=== PATIENT | male | born 1940 | race Caucasian/White ===

== ENCOUNTER 2017-07-06 15:34 | Inpatient (IN) | payer MEDICARE, MEDICAID ==
[~2017-07-06] VITALS: Ht 170.2 cm; Wt 39.0 kg
--- NOTE | 2017-07-06 16:06 | NUR ---
PT IS IN ROOM #2B. DR MATA EVALUATED THE PT.
--- NOTE | 2017-07-06 16:12 | NUR ---
PT IS IN ROOM 2B UNDER DIRECT SUPERVISION OF COURTNEY LANDON. NO S/S OF ACUTE DISTRESS AT THIS TIME.
[2017-07-06] MEDS ORDERED: LACT1CAP61 PO (16:29)
[2017-07-06] MEDS ORDERED: MULT-1185 PO (16:29)
[2017-07-06] MEDS ORDERED: MEMA5TAB PO (16:29)
[2017-07-06] MEDS ORDERED: ASCO500T9 PO (16:29)
[2017-07-06] MEDS ORDERED: CHOL100062 PO (16:29)
[2017-07-06] MEDS ORDERED: DOCU250C14 PO (16:29)
[2017-07-06] MEDS ORDERED: CARB1TAB21 PO (16:29)
[2017-07-06] MEDS ORDERED: TEMA7.5C2 PO (16:30)
[2017-07-06] MEDS ORDERED: RISP1TAB7 PO (16:30)
[2017-07-06] MEDS ORDERED: BISA10SU12 RC (16:30)
[2017-07-06] MEDS ORDERED: ACET325T53 PO (16:30)
[2017-07-06] MEDS ORDERED: MAG355OR18 PO (16:30)
[2017-07-06] MEDS ORDERED: SERT50TA PO (16:30)
[2017-07-06] MEDS ORDERED: PANT40TA4 PO (16:30)
[2017-07-06] MEDS ORDERED: LORA0.5T PO (16:30)
[2017-07-06] MEDS ORDERED: SENN-167 PO (16:30)
[2017-07-06] MEDS ORDERED: NA P133E RC (16:30)
[2017-07-06] MEDS ORDERED: MAGN400O6 PO (16:30)
[2017-07-06 16:32] LABS: BASOPHILS # (AUTO) 0.1 K/uL (0.0-8.0); BASOPHILS % (AUTO) 0.6 % (0.0-2.0); EOSINOPHILS # (AUTO) 0.5 K/uL (0.0-0.7); HEMATOCRIT 39.9 % (40-50); HEMOGLOBIN 13.3 G/DL (14.0-18.0); LYMPHOCYTES # (AUTO) 1.3 K/UL (0.8-4.8); LYMPHOCYTES % (AUTO) 12.1 % (20.5-51.5); MEAN CORPUSCULAR HEMOGLOBIN 29.8 UUG (27.0-31.0); MEAN CORPUSCULAR HGB CONC 33 g/dL (32.0-37.0); MEAN CORPUSCULAR VOLUME 89.6 FL (82.0-92.0); MONOCYTES # (AUTO) 0.5 K/UL (0.1-1.30); MONOCYTES % (AUTO) 4.9 % (0.0-11.0); NEUTROPHILS # (AUTO) 8.1 K/UL (1.8-8.9); NEUTROPHILS % (AUTO) 77.4 % (38.5-71.5); PLATELET COUNT (AUTO) 218 K/UL (150-450); RED BLOOD CELL COUNT(AUTO) 4.46 MIL/UL (4.7-6.1); WHITE BLOOD COUNT (AUTO) 10.5 K/UL (4.0-11.2)
[2017-07-06 16:41] LABS: CARBON DIOXIDE 28 mmol/L (21-32); CHLORIDE 102 mmol/L (98-107); CREATININE 0.9 mg/dL (0.6-1.3); GLUCOSE 110 mg/dL (74-106); POTASSIUM 4.1 mmol/L (3.5-5.1); UREA NITROGEN, BLOOD 25 mg/dL (7-18)
[2017-07-06 16:43] LABS: ETHANOL < 3 MG/DL (0-0)
[2017-07-06 16:56] LABS: ACETAMINOPHEN < 2.0 ug/mL (10-30); ALANINE AMINOTRANSFERASE 12 U/L (16-63); ALKALINE PHOSPHATASE 89 U/L (50-136); ASPARTATE AMINOTRANSFERASE 20 U/L (15-37); BILIRUBIN,DIRECT 0.1 mg/dL (0.0-0.2); BILIRUBIN,TOTAL 0.3 mg/dL (0.2-1.0); THYROID STIMULATING HORMONE 1.043 mIU/mL (0.358-3.740); TOTAL PROTEIN, SERUM 7.4 g/dL (6.4-8.2)
--- NOTE | 2017-07-06 18:47 | NUR ---
JW SALAS EVALUATED THE PT. PT IS RESTING IN BED COMFORTABLY. NO S/S OF ACUTE DISTRESS AT THIS TIME.
--- NOTE | 2017-07-06 19:01 | NUR ---
REPORT WAS GIVEN TO SOLAR SALES MANAGER RN.
[2017-07-06] MEDS ORDERED: MAG HYDROX/AL HYDROX/SIMETH 30 ML LIQUID UDC PO PRN ×2 (20:15→22:30)
[2017-07-06] MEDS ORDERED: TEMAZEPAM 7.5 MG CAPSULE PO PRN (20:15)
[2017-07-06] MEDS ORDERED: MAGNESIUM HYDROXIDE 30 ML LIQUID UDC PO PRN ×2 (20:15→22:30)
[2017-07-06] MEDS ORDERED: LORAZEPAM 1 MG TABLET PO PRN (20:15)
--- NOTE | 2017-07-06 20:16 | NUR ---
Pt. admitted to MHU, under care of Dr. lino/panel, Belongs List completed, pt is alert, oriented x 2, no resp distress noted or reported upon assessment..
--- NOTE | 2017-07-06 21:47 | NUR ---
At approx 2015 admitted 76 year old male from [facility] ([facility]. Per staff at [facility], patient made suicidal statements, "wanting to ". but without specific plan. 5150 hold started on 07/06/17 at 1820 and will end on 07/09/17 at 1820. Patient is A/O x 2 and able to make his needs know. Pt needs assistance with ambulation and ADL. Pt was calm and cooperative at time of admission. He denies SI, he stated, "they got it wrong, I don't want to ". Attending MD was notify and all medication were reconciled, attending Psychiatrist was notified of admission. Attempted to notify Public Guarding Gabe Molina, but unable to leave a message. will try in the AM. Body assessment: redness noted in buttocks and scrotum. but no wounds or open skin was noted. will monitor. Fungus toenail bilateral was also noted. We will continue to monitor.
[2017-07-06 22:07] VITALS: BP 120/67
[2017-07-06] MEDS ORDERED: ACETAMINOPHEN 325 MG TABLET PO PRN (22:30)
[2017-07-06] MEDS ORDERED: FLEET ENEMA 133 ML BOTTLE RC PRN (22:30)
[2017-07-06] MEDS ORDERED: BISACODYL 10 MG SUPP.RECT RC PRN (22:30)
[2017-07-07 07:30] VITALS: BP 129/63
[2017-07-07] MEDS: ACIDOPHILUS/BULGARICUS CHEW TAB PO SCH (09:35)
[2017-07-07] MEDS: CARBIDOPA/LEVODOPA 25-100MG TABLET PO SCH ×3 (09:35→16:13)
[2017-07-07] MEDS: CHOLECALCIFEROL 1,000 UNIT TABLET PO SCH ×3 (09:35→16:13)
[2017-07-07] MEDS: PANTOPRAZOLE SODIUM 40 MG TABLET.DR PO SCH (09:35)
[2017-07-07] MEDS: ASCORBIC ACID 500 MG TABLET PO SCH (09:35)
[2017-07-07] MEDS: Z GUARD REMEDY PASTE 57 GM TUBE TOP SCH ×2 (09:42→20:06)
[2017-07-07] MEDS: ACETAMINOPHEN 325 MG TABLET PO PRN (09:48)
[2017-07-07] MEDS: DOCUSATE SODIUM 250 MG CAPSULE PO SCH (09:48)
--- NOTE | 2017-07-07 10:48 | NUR ---
Received patient in bed awake, flat/blunted affect, guarded, calm and cooperative, ate 50% breakfast, showered this am. Denies suicidal ideations at this time, denies hearing voices. Medication compliant and cooperative, c/o leg pain at 6/10, tylenol 650mg PO was given at 0948, reassessed in an hour, pain /10. Will continue to monitor for safety and needs.
[2017-07-07] MEDS: MULTIVIT, IRON, MIN NO. 8, FA TABLET PO SCH (11:05)
--- NOTE | 2017-07-07 11:42 | NUR ---
Initial discharge instructions: Pt resides at [facility] [[address],[address];[phone]].Spoke with LPS Conservator-Gabe Hughes [phone] who reported he would like the pt to return back to the facility.SW will speak with pt,conservator,and MD regarding discharge plans.SW will form a safe and proper discharge.
[2017-07-07 17:04] VITALS: BP 107/52
--- NOTE | 2017-07-07 17:59 | NUR ---
Patient stayed in his room most of the shift, depressed mood, denies suicidal ideation, guarded, no behavior problem noted. Medication compliant and cooperative. Will continue to monitor for safety and behavioral changes.
[2017-07-07] MEDS: SERTRALINE HCL 50 MG TABLET PO SCH (18:46)
[2017-07-07 20:00] VITALS: BP 113/53
[2017-07-07] MEDS: SENNOSIDES 1 TABLET PO SCH (20:05)
[2017-07-07] MEDS: risperiDONE 1 MG TABLET PO SCH (20:05)
--- NOTE | 2017-07-07 22:04 | NUR ---
pt received in his room laying in bed awake, a/o x2, tremors noted, pressured speech, able to make needs known, diaper changed, pt repositioned, took meds as ordered, will continue to monitor closely
[2017-07-08] MEDS: ACETAMINOPHEN 325 MG TABLET PO PRN ×3 (01:22→13:50)
[2017-07-08] MEDS: PANTOPRAZOLE SODIUM 40 MG TABLET.DR PO SCH (06:12)
[2017-07-08 08:00] VITALS: BP 106/59
[2017-07-08] MEDS: SERTRALINE HCL 50 MG TABLET PO SCH (08:57)
[2017-07-08] MEDS: DOCUSATE SODIUM 250 MG CAPSULE PO SCH (08:57)
[2017-07-08] MEDS: CHOLECALCIFEROL 1,000 UNIT TABLET PO SCH ×3 (08:57→16:29)
[2017-07-08] MEDS: ACIDOPHILUS/BULGARICUS CHEW TAB PO SCH (08:57)
[2017-07-08] MEDS: CARBIDOPA/LEVODOPA 25-100MG TABLET PO SCH ×3 (08:57→16:29)
[2017-07-08] MEDS: ASCORBIC ACID 500 MG TABLET PO SCH (08:57)
[2017-07-08] MEDS: Z GUARD REMEDY PASTE 57 GM TUBE TOP SCH ×2 (08:58→20:16)
[2017-07-08] MEDS: MULTIVIT, IRON, MIN NO. 8, FA TABLET PO SCH (11:30)
[2017-07-08 16:00] VITALS: BP 93/56
[2017-07-08] MEDS: SENNOSIDES 1 TABLET PO SCH (20:16)
[2017-07-08] MEDS: risperiDONE 1 MG TABLET PO SCH (20:16)
[2017-07-08 20:19] LABS: *OCCULT BLOOD STOOL NEGATIVE (NEGATIVE)
[2017-07-08 20:24] VITALS: BP 103/54
[2017-07-08] MEDS: HYDROCODONE/APAP 10-325 MG TABLET PO PRN (22:05)
--- NOTE | 2017-07-09 02:04 | NUR ---
AT 0140, Pt's BP WAS TAKEN AND FOUND TO BE LOW AT 93/43. Pt C/O DIZZINESS, AND HE WAS GIVEN APPROXIMATELY 300ml OF PO FLUIDS, THEN PLACED IN TRENDELENBURG POSITION. DR REESE NOTIFIED OF LOW BP, NO NEW ORDERS GIVEN. BP IS 87/43 UPON RE-CHECK. WILL CONTINUE TO MONITOR CLOSELY.
[2017-07-09] MEDS: ACETAMINOPHEN 325 MG TABLET PO PRN ×2 (03:24→20:31)
--- NOTE | 2017-07-09 03:47 | NUR ---
BP RE-CHECKED AND NOW 110/64. WILL CONTINUE TO MONITOR.
--- NOTE | 2017-07-09 03:48 | NUR ---
TYLENOL 650mg PULLED FROM PYXIS AT APPROXIMATELY 2014, WHEN THE ATTEMPT WAS MADE TO ADMINISTER IT, Pt THREW THE TYLENOL AND STATED, "THEY DON'T WORK!" TYLENOL WAS WASTED.
[2017-07-09] MEDS: PANTOPRAZOLE SODIUM 40 MG TABLET.DR PO SCH (06:27)
[2017-07-09 06:53] LABS: BASOPHILS # (AUTO) 0.1 K/uL (0.0-8.0); BASOPHILS % (AUTO) 0.7 % (0.0-2.0); EOSINOPHILS # (AUTO) 0.6 K/uL (0.0-0.7); EOSINOPHILS % (AUTO) 7.2 % (0.0-7.0); HEMATOCRIT 38.1 % (40-50); HEMOGLOBIN 12.7 G/DL (14.0-18.0); LYMPHOCYTES # (AUTO) 1.4 K/UL (0.8-4.8); LYMPHOCYTES % (AUTO) 17.5 % (20.5-51.5); MEAN CORPUSCULAR HEMOGLOBIN 29.9 UUG (27.0-31.0); MEAN CORPUSCULAR HGB CONC 33 g/dL (32.0-37.0); MEAN CORPUSCULAR VOLUME 89.4 FL (82.0-92.0); MONOCYTES # (AUTO) 0.5 K/UL (0.1-1.30); MONOCYTES % (AUTO) 6.6 % (0.0-11.0); NEUTROPHILS # (AUTO) 5.5 K/UL (1.8-8.9); PLATELET COUNT (AUTO) 162 K/UL (150-450); RED BLOOD CELL COUNT(AUTO) 4.26 MIL/UL (4.7-6.1); WHITE BLOOD COUNT (AUTO) 8.1 K/UL (4.0-11.2)
[2017-07-09 07:24] LABS: CARBON DIOXIDE 28 mmol/L (21-32); CHLORIDE 103 mmol/L (98-107); GLUCOSE 83 mg/dL (74-106); UREA NITROGEN, BLOOD 20 mg/dL (7-18)
[2017-07-09 07:30] VITALS: BP 92/53
[2017-07-09] MEDS: SERTRALINE HCL 50 MG TABLET PO SCH (08:50)
[2017-07-09] MEDS: ACIDOPHILUS/BULGARICUS CHEW TAB PO SCH (08:50)
[2017-07-09] MEDS: ASCORBIC ACID 500 MG TABLET PO SCH (08:51)
[2017-07-09] MEDS: MULTIVIT, IRON, MIN NO. 8, FA TABLET PO SCH (08:51)
[2017-07-09] MEDS: CHOLECALCIFEROL 1,000 UNIT TABLET PO SCH ×3 (08:51→17:26)
[2017-07-09] MEDS: CARBIDOPA/LEVODOPA 25-100MG TABLET PO SCH ×3 (08:51→17:26)
[2017-07-09] MEDS: Z GUARD REMEDY PASTE 57 GM TUBE TOP SCH ×2 (08:52→20:36)
[2017-07-09] MEDS: DOCUSATE SODIUM 250 MG CAPSULE PO SCH (09:03)
[2017-07-09] MEDS ORDERED: IV NS 1000 ML 1,000 ML IV ONE (16:30)
[2017-07-09] MEDS: SENNOSIDES 1 TABLET PO SCH (20:31)
[2017-07-09] MEDS: risperiDONE 1 MG TABLET PO SCH (20:31)
[2017-07-09 20:41] VITALS: BP 124/68
[2017-07-09] MEDS: HYDROCODONE/APAP 10-325 MG TABLET PO PRN (23:29)
[2017-07-10] MEDS: PANTOPRAZOLE SODIUM 40 MG TABLET.DR PO SCH (06:13)
[2017-07-10 07:30] VITALS: BP 108/56
[2017-07-10] MEDS: SERTRALINE HCL 50 MG TABLET PO SCH (08:52)
[2017-07-10] MEDS: ASCORBIC ACID 500 MG TABLET PO SCH (08:53)
[2017-07-10] MEDS: Z GUARD REMEDY PASTE 57 GM TUBE TOP SCH ×2 (08:53→20:11)
[2017-07-10] MEDS: CARBIDOPA/LEVODOPA 25-100MG TABLET PO SCH ×3 (08:53→17:39)
[2017-07-10] MEDS: DOCUSATE SODIUM 250 MG CAPSULE PO SCH (08:53)
[2017-07-10] MEDS: CHOLECALCIFEROL 1,000 UNIT TABLET PO SCH ×3 (08:53→17:39)
[2017-07-10] MEDS: ACIDOPHILUS/BULGARICUS CHEW TAB PO SCH (08:53)
[2017-07-10] MEDS: HYDROCODONE/APAP 10-325 MG TABLET PO PRN (09:09)
[2017-07-10] MEDS: MULTIVIT, IRON, MIN NO. 8, FA TABLET PO SCH (13:02)
[2017-07-10 15:00] VITALS: BP 78/41
[2017-07-10] MEDS ORDERED: IV NS 1000 ML 1,000 ML IV ONE (16:00)
--- NOTE | 2017-07-10 18:31 | NUR ---
1540 Patient B/P low 78/41 , asymptomatic. DNP. Lio Cleary in MHU aware of patient B/P with order to give iv NS bolus 1liter. 1601 IV NS iL bolus started right forearm infusing well. 1700 IV therapy completed without adverse reaction noted. 1845 Rechecked v/s T-97.9 HR- 60 Resp- 18 B/P 105/59 O2 Sat- 92 % R/A, patient denies dizziness related to low B/P. Will continue to monitor v/s. Report given to maintenance supervisor 2nd shift nurse .
[2017-07-10] MEDS: ACETAMINOPHEN 325 MG TABLET PO PRN (19:48)
[2017-07-10] MEDS: risperiDONE 1 MG TABLET PO SCH (20:11)
[2017-07-10] MEDS: SENNOSIDES 1 TABLET PO SCH (20:12)
[2017-07-10 20:23] VITALS: BP 107/46
[2017-07-11] MEDS: ACETAMINOPHEN 325 MG TABLET PO PRN ×2 (01:51→14:55)
[2017-07-11] MEDS: PANTOPRAZOLE SODIUM 40 MG TABLET.DR PO SCH (06:24)
[2017-07-11 07:30] VITALS: BP 118/61
[2017-07-11] MEDS: ACIDOPHILUS/BULGARICUS CHEW TAB PO SCH (09:04)
[2017-07-11] MEDS: SERTRALINE HCL 50 MG TABLET PO SCH (09:04)
[2017-07-11] MEDS: ASCORBIC ACID 500 MG TABLET PO SCH (09:04)
[2017-07-11] MEDS: CHOLECALCIFEROL 1,000 UNIT TABLET PO SCH ×3 (09:04→16:39)
[2017-07-11] MEDS: DOCUSATE SODIUM 250 MG CAPSULE PO SCH (09:04)
[2017-07-11] MEDS: CARBIDOPA/LEVODOPA 25-100MG TABLET PO SCH ×3 (09:04→16:39)
[2017-07-11] MEDS: Z GUARD REMEDY PASTE 57 GM TUBE TOP SCH ×2 (09:22→20:18)
[2017-07-11] MEDS: MULTIVIT, IRON, MIN NO. 8, FA TABLET PO SCH (12:26)
[2017-07-11 15:57] VITALS: BP 106/50
[2017-07-11] MEDS: risperiDONE 1 MG TABLET PO SCH (20:16)
[2017-07-11] MEDS: SENNOSIDES 1 TABLET PO SCH (20:17)
[2017-07-11 20:22] VITALS: BP 105/48
[2017-07-12] MEDS: ACETAMINOPHEN 325 MG TABLET PO PRN ×3 (05:12→19:37)
[2017-07-12] MEDS: PANTOPRAZOLE SODIUM 40 MG TABLET.DR PO SCH (06:17)
[2017-07-12 07:30] VITALS: BP 101/58
[2017-07-12] MEDS: CARBIDOPA/LEVODOPA 25-100MG TABLET PO SCH ×4 (08:02→20:26)
[2017-07-12] MEDS: ASCORBIC ACID 500 MG TABLET PO SCH (08:02)
[2017-07-12] MEDS: ACIDOPHILUS/BULGARICUS CHEW TAB PO SCH (08:02)
[2017-07-12] MEDS: CHOLECALCIFEROL 1,000 UNIT TABLET PO SCH ×3 (08:02→17:01)
[2017-07-12] MEDS: SERTRALINE HCL 50 MG TABLET PO SCH (08:03)
[2017-07-12] MEDS: DOCUSATE SODIUM 250 MG CAPSULE PO SCH (08:07)
[2017-07-12] MEDS: Z GUARD REMEDY PASTE 57 GM TUBE TOP SCH ×2 (09:21→20:25)
[2017-07-12] MEDS: MULTIVIT, IRON, MIN NO. 8, FA TABLET PO SCH (11:10)
[2017-07-12 15:28] VITALS: BP 94/51
[2017-07-12 20:15] VITALS: BP 139/65
[2017-07-12] MEDS: risperiDONE 1 MG TABLET PO SCH (20:26)
[2017-07-12] MEDS: SENNOSIDES 1 TABLET PO SCH (20:26)
[2017-07-12] MEDS ORDERED: IBUPROFEN 800 MG TABLET PO ONE (21:15)
[2017-07-12] MEDS ORDERED: IBUPROFEN 400 MG TABLET ONE (21:30)
--- NOTE | 2017-07-12 21:46 | NUR ---
TEMP ELEVATED AT BEGINNING OF SHIFT, 101.9. TYLENOL 650MG ADMINISTERED. TEMP 102.7 UPON RE-CHECK AT 2099. DNP LOS JASMINE NOTIFIED OF Pt's CONDITION AT 2104. 800MG MOTRIN x1 NOW ORDERED AND ADMINISTERED. STAT CXR ORDERED AND COMPLETED, AWAITING RESULTS. STRAIGHT CATH ORDERED, ATTEMPT MADE, RN UNABLE TO OBTAIN URINE AT THIS TIME. Pt GIVEN PO FLUIDS, WILL ATTEMPT AGAIN. NON-PHARMACOLOGICAL COOLING MEASURES PROVIDED AT THIS TIME.
--- NOTE | 2017-07-12 22:48 | NUR ---
HS RISPERDAL HELD DUE TO UNPREDICTABILITY OF BP, AND NO EVIDENT PSYCHOTIC BEHAVIORS AT THIS TIME. WILL CONTINUE TO MONITOR.
--- NOTE | 2017-07-12 23:51 | NUR ---
STRAIGHT CATH UNSUCCESSFUL AT THIS TIME. SUPRAPUBIC DISTENTION NOTED, MD AWARE. SCANNED BLADDER, SHOWS 90mls OF URINE IN THE BLADDER. CXR RESULT SHOWS (L) LUNG ATELECTASIS VS INFILTRATE, MD AWARE. PER MD ORDER, WILL PLACE A CONDOM CATH AT THIS TIME, IF UNSUCCESSFUL, WILL ATTEMPT CUDET CATH PER MD. TEMP 99.1 AT THIS TIME.
[2017-07-13] MEDS: CARBIDOPA/LEVODOPA 25-100MG TABLET PO SCH ×5 (05:50→20:37)
[2017-07-13] MEDS: PANTOPRAZOLE SODIUM 40 MG TABLET.DR PO SCH (06:42)
[2017-07-13 06:45] LABS: *BILIRUBIN,URIN NEGATIVE (NEGATIVE); *BLOOD, URINE 1+ (NEGATIVE); *CLARITY,URINE CLOUDY (CLEAR); *COLOR,URINE YELLOW (YELLOW); *KETONES,URINE NEGATIVE (NEGATIVE); *PROTEIN,URINE 2+ (NEGATIVE); *UROBILINOGEN,URINE 0.2 E.U./dl (NORMAL); LEUKOCYTE ESTERASE ,URINE 3+ (NEGATIVE); NITRITE, URINE NEGATIVE (NEGATIVE); UGLUCOSE NEGATIVE (NEGATIVE)
--- NOTE | 2017-07-13 06:53 | NUR ---
URINE COLLECTED VIA CONDOM CATHETER AND SENT TO LAB AT APPROXIMATELY 0600. Pt TEMP AT 0615 97.1.
[2017-07-13 07:08] LABS: BASOPHILS % (AUTO) 0.2 % (0.0-2.0); EOSINOPHILS # (AUTO) 0.3 K/uL (0.0-0.7); EOSINOPHILS % (AUTO) 2.5 % (0.0-7.0); HEMATOCRIT 39.1 % (40-50); HEMOGLOBIN 12.8 G/DL (14.0-18.0); LYMPHOCYTES # (AUTO) 0.9 K/UL (0.8-4.8); LYMPHOCYTES % (AUTO) 7.6 % (20.5-51.5); MEAN CORPUSCULAR HEMOGLOBIN 29.5 UUG (27.0-31.0); MEAN CORPUSCULAR HGB CONC 33 g/dL (32.0-37.0); MEAN CORPUSCULAR VOLUME 90.4 FL (82.0-92.0); MONOCYTES # (AUTO) 1.1 K/UL (0.1-1.30); MONOCYTES % (AUTO) 8.6 % (0.0-11.0); NEUTROPHILS % (AUTO) 81.1 % (38.5-71.5); PLATELET COUNT (AUTO) 124 K/UL (150-450); RED BLOOD CELL COUNT(AUTO) 4.32 MIL/UL (4.7-6.1)
[2017-07-13 07:18] LABS: ALANINE AMINOTRANSFERASE 16 U/L (16-63); ALKALINE PHOSPHATASE 82 U/L (50-136); ASPARTATE AMINOTRANSFERASE 16 U/L (15-37); BILIRUBIN,TOTAL 0.5 mg/dL (0.2-1.0); CARBON DIOXIDE 28 mmol/L (21-32); CHLORIDE 103 mmol/L (98-107); GLUCOSE 93 mg/dL (74-106); MAGNESIUM 2.1 mg/dL (1.8-2.4); PHOSPHOROUS 3.8 mg/dL (2.5-4.9); TOTAL PROTEIN, SERUM 7.2 g/dL (6.4-8.2); UREA NITROGEN, BLOOD 18 mg/dL (7-18)
[2017-07-13 07:24] LABS: WHITE BLOOD COUNT (AUTO) 12.3 K/UL (4.0-11.2)
[2017-07-13 07:30] VITALS: BP 90/46
[2017-07-13 08:09] LABS: WBC,URINE TNTC /HPF (0-3)
[2017-07-13 08:10] LABS: BACTERIA,URINE MANY /HPF (NONE SEEN); SQUAMOUS EPITHELIAL CELL,UR FEW /HPF (NONE SEEN)
[2017-07-13] MEDS: CHOLECALCIFEROL 1,000 UNIT TABLET PO SCH ×3 (08:28→16:43)
[2017-07-13] MEDS: ASCORBIC ACID 500 MG TABLET PO SCH (08:28)
[2017-07-13] MEDS: ACIDOPHILUS/BULGARICUS CHEW TAB PO SCH (08:29)
[2017-07-13] MEDS: SERTRALINE HCL 50 MG TABLET PO SCH (08:29)
[2017-07-13] MEDS: DOCUSATE SODIUM 250 MG CAPSULE PO SCH (08:29)
[2017-07-13 09:17] LABS: BAND % (MANUAL) 13 % (0-10); BASOPHILS % (MANUAL) 1 % (0-2); LYMPHOCYTES % (MANUAL) 8 % (20-40); MONOCYTES % (MANUAL) 8 % (2-10); NEUTROPHILS % (MANUAL) 70 % (42-75)
--- NOTE | 2017-07-13 09:20 | NUR ---
0900 called Lio WYNN in Medical floor regarding patient abnormal urinalysis result- message left to [employer], he will notifiy TAXI PROPRIETOR.
[2017-07-13] MEDS: Z GUARD REMEDY PASTE 57 GM TUBE TOP SCH ×2 (10:22→20:20)
[2017-07-13] MEDS: MULTIVIT, IRON, MIN NO. 8, FA TABLET PO SCH (11:24)
[2017-07-13] MEDS ORDERED: LEVOFLOXACIN 500 MG TABLET PO SCH (11:30)
--- NOTE | 2017-07-13 11:30 | NUR ---
1120 F/U made by charged nurse to TIANNA Cleary regarding abnormal urinalysis results with antibiotic order of levaquin 500 mg po daily. Specimen urine cs sent to lab. .
[2017-07-13] MEDS ORDERED: LEVOFLOXACIN 500 MG TABLET PO ONE (12:30)
[2017-07-13] MEDS: ACETAMINOPHEN 325 MG TABLET PO PRN (15:07)
--- NOTE | 2017-07-13 15:30 | NUR ---
1500 Patient febrile, T-101 F, tylenol 650 mg po given and cooling compress rendered over forehead and axilla. Encouraged increased oral fluids as tolerated. will continue to monitor patient health condition.
[2017-07-13 15:36] VITALS: BP 120/62
[2017-07-13 19:04] VITALS: BP 110/62
[2017-07-13 20:18] VITALS: BP 103/66
[2017-07-13] MEDS: SENNOSIDES 1 TABLET PO SCH (20:38)
[2017-07-13] MEDS: risperiDONE 1 MG TABLET PO SCH (20:44)
[2017-07-13] MEDS: HYDROCODONE/APAP 10-325 MG TABLET PO PRN (20:51)
[2017-07-13 20:58] VITALS: BP 112/59
[2017-07-14] MEDS: PANTOPRAZOLE SODIUM 40 MG TABLET.DR PO SCH (06:01)
[2017-07-14] MEDS: CARBIDOPA/LEVODOPA 25-100MG TABLET PO SCH ×5 (06:01→20:24)
[2017-07-14 07:30] VITALS: BP 90/51
[2017-07-14] MEDS: SERTRALINE HCL 50 MG TABLET PO SCH (09:00)
[2017-07-14] MEDS: ASCORBIC ACID 500 MG TABLET PO SCH (09:03)
[2017-07-14] MEDS: DOCUSATE SODIUM 250 MG CAPSULE PO SCH (09:03)
[2017-07-14] MEDS: CHOLECALCIFEROL 1,000 UNIT TABLET PO SCH ×3 (09:04→17:26)
[2017-07-14] MEDS: ACIDOPHILUS/BULGARICUS CHEW TAB PO SCH (09:04)
[2017-07-14] MEDS: Z GUARD REMEDY PASTE 57 GM TUBE TOP SCH ×2 (09:52→20:20)
[2017-07-14] MEDS: LEVOFLOXACIN 250 MG TABLET PO SCH (11:54)
[2017-07-14] MEDS: MULTIVIT, IRON, MIN NO. 8, FA TABLET PO SCH (11:55)
[2017-07-14] MEDS ORDERED: MAGNESIUM HYDROXIDE 30 ML LIQUID UDC PO ONE (13:15)
[2017-07-14] MEDS ORDERED: BISACODYL 10 MG SUPP.RECT RC ONE (13:15)
[2017-07-14 16:04] VITALS: BP 120/73
[2017-07-14] MEDS: ACETAMINOPHEN 325 MG TABLET PO PRN (17:35)
[2017-07-14 20:10] VITALS: BP 106/63
[2017-07-14] MEDS: risperiDONE 1 MG TABLET PO SCH (20:24)
[2017-07-14] MEDS: SENNOSIDES 1 TABLET PO SCH (20:24)
[2017-07-15] MEDS: PANTOPRAZOLE SODIUM 40 MG TABLET.DR PO SCH (06:06)
[2017-07-15] MEDS: CARBIDOPA/LEVODOPA 25-100MG TABLET PO SCH ×5 (06:06→20:26)
[2017-07-15 07:30] VITALS: BP 108/53
[2017-07-15] MEDS: SERTRALINE HCL 50 MG TABLET PO SCH (08:11)
[2017-07-15] MEDS: DOCUSATE SODIUM 250 MG CAPSULE PO SCH (08:11)
[2017-07-15] MEDS: ACIDOPHILUS/BULGARICUS CHEW TAB PO SCH (08:12)
[2017-07-15] MEDS: CHOLECALCIFEROL 1,000 UNIT TABLET PO SCH ×3 (08:12→16:56)
[2017-07-15] MEDS: Z GUARD REMEDY PASTE 57 GM TUBE TOP SCH ×2 (08:12→20:26)
[2017-07-15] MEDS: ASCORBIC ACID 500 MG TABLET PO SCH (08:12)
[2017-07-15 09:01] LABS: BASOPHILS % (AUTO) 0.3 % (0.0-2.0); EOSINOPHILS # (AUTO) 0.1 K/uL (0.0-0.7); HEMATOCRIT 35.9 % (40-50); LYMPHOCYTES % (AUTO) 6.9 % (20.5-51.5); MEAN CORPUSCULAR HEMOGLOBIN 29.7 UUG (27.0-31.0); MEAN CORPUSCULAR HGB CONC 33 g/dL (32.0-37.0); MEAN CORPUSCULAR VOLUME 89.1 FL (82.0-92.0); MONOCYTES # (AUTO) 1.4 K/UL (0.1-1.30); MONOCYTES % (AUTO) 9.7 % (0.0-11.0); NEUTROPHILS # (AUTO) 11.8 K/UL (1.8-8.9); NEUTROPHILS % (AUTO) 82.1 % (38.5-71.5); PLATELET COUNT (AUTO) 149 K/UL (150-450); RED BLOOD CELL COUNT(AUTO) 4.03 MIL/UL (4.7-6.1); WHITE BLOOD COUNT (AUTO) 14.3 K/UL (4.0-11.2)
[2017-07-15 09:22] LABS: ALANINE AMINOTRANSFERASE 6 U/L (16-63); ALKALINE PHOSPHATASE 74 U/L (50-136); ASPARTATE AMINOTRANSFERASE 14 U/L (15-37); BILIRUBIN,TOTAL 0.4 mg/dL (0.2-1.0); CARBON DIOXIDE 29 mmol/L (21-32); CHLORIDE 100 mmol/L (98-107); GLUCOSE 106 mg/dL (74-106); MAGNESIUM 2.2 mg/dL (1.8-2.4); PHOSPHOROUS 3.3 mg/dL (2.5-4.9); POTASSIUM 4.2 mmol/L (3.5-5.1); TOTAL PROTEIN, SERUM 6.8 g/dL (6.4-8.2); UREA NITROGEN, BLOOD 21 mg/dL (7-18)
--- NOTE | 2017-07-15 10:00 | NUR ---
AWAKE ALERT AND AWARE ALL NEEDS ANTICIPATED AND SATISFIED.REQUIRES MAX ASSIST FOR ALL ADL.ON FIRST STEP FOR PROPER BODY ALLIGNMENT TURNED AND REPOSITIONED Q2H ASSISTED WITH MEALS BUT APPETITE REMAINS POOR AT THIS TIME.NOT IN DISTRESS MADE COMFORTABLE.
[2017-07-15] MEDS: MULTIVIT, IRON, MIN NO. 8, FA TABLET PO SCH (10:27)
[2017-07-15] MEDS: LEVOFLOXACIN 250 MG TABLET PO SCH (12:56)
--- NOTE | 2017-07-15 14:00 | NUR ---
PATIENT REMAIN ON ORAL ANTIBIOTICS ORDERED WITH NO ADVERSE OR ALLERGIC REACTIONS AT THIS TIME.FLUIDS ENCOURAGED PATIENT IS AFEBRILE AT THIS TIME
[2017-07-15 16:00] VITALS: BP 101/50
[2017-07-15] MEDS: SENNOSIDES 1 TABLET PO SCH (20:26)
[2017-07-15 20:46] VITALS: BP 109/62
[2017-07-15] MEDS ORDERED: risperiDONE 1 MG TABLET PO SCH (21:00)
[2017-07-15] MEDS ORDERED: risperiDONE 0.5 MG TABLET PO SCH (21:00)
[2017-07-16] MEDS: CARBIDOPA/LEVODOPA 25-100MG TABLET PO SCH ×4 (06:09→17:13)
[2017-07-16] MEDS: PANTOPRAZOLE SODIUM 40 MG TABLET.DR PO SCH (06:09)
[2017-07-16] MEDS: ACETAMINOPHEN 325 MG TABLET PO PRN (06:09)
[2017-07-16 07:30] VITALS: BP 106/62
[2017-07-16 07:44] LABS: BASOPHILS % (AUTO) 0.4 % (0.0-2.0); EOSINOPHILS # (AUTO) 0.4 K/uL (0.0-0.7); EOSINOPHILS % (AUTO) 3.6 % (0.0-7.0); HEMATOCRIT 36.1 % (40-50); HEMOGLOBIN 11.9 G/DL (14.0-18.0); LYMPHOCYTES % (AUTO) 9.2 % (20.5-51.5); MEAN CORPUSCULAR HEMOGLOBIN 29.6 UUG (27.0-31.0); MEAN CORPUSCULAR HGB CONC 33 g/dL (32.0-37.0); MEAN CORPUSCULAR VOLUME 89.7 FL (82.0-92.0); MONOCYTES # (AUTO) 0.9 K/UL (0.1-1.30); MONOCYTES % (AUTO) 8.4 % (0.0-11.0); NEUTROPHILS # (AUTO) 8.8 K/UL (1.8-8.9); NEUTROPHILS % (AUTO) 78.4 % (38.5-71.5); PLATELET COUNT (AUTO) 189 K/UL (150-450); RED BLOOD CELL COUNT(AUTO) 4.02 MIL/UL (4.7-6.1); WHITE BLOOD COUNT (AUTO) 11.1 K/UL (4.0-11.2)
[2017-07-16] MEDS: SERTRALINE HCL 50 MG TABLET PO SCH (09:39)
[2017-07-16] MEDS: ACIDOPHILUS/BULGARICUS CHEW TAB PO SCH (09:39)
[2017-07-16] MEDS: DOCUSATE SODIUM 250 MG CAPSULE PO SCH (09:39)
[2017-07-16] MEDS: ASCORBIC ACID 500 MG TABLET PO SCH (09:39)
[2017-07-16] MEDS: Z GUARD REMEDY PASTE 57 GM TUBE TOP SCH (09:39)
[2017-07-16] MEDS: CHOLECALCIFEROL 1,000 UNIT TABLET PO SCH ×3 (09:39→17:14)
[2017-07-16] MEDS ORDERED: SULFAMETH/TRIMETH 800/160 MG TABLET PO SCH (09:41)
[2017-07-16] MEDS: HYDROCODONE/APAP 10-325 MG TABLET PO PRN ×2 (09:55→17:14)
[2017-07-16] MEDS: MULTIVIT, IRON, MIN NO. 8, FA TABLET PO SCH (12:45)
[2017-07-16] MEDS ORDERED: LEVOFLOXACIN 250 MG TABLET PO SCH (17:00)
--- NOTE | 2017-07-16 18:07 | NUR ---
PT IS A/O X 2, WITHDRAWN, REFUSES FOOD, ONLY TAKES BOOST. PT IS COMPLIANT WITH MEDICATIONS. PT IS BEING DISCHARGED TO MEDICAL FLOOR. VS STABLE. PT IS AWARE AND WILLING TO GO. REPORT WAS CALLED TO COURTNEY ABDI.
[2017-07-16] MEDS ORDERED: ZINC113P2 TP (19:53)
[2017-07-16] MEDS ORDERED: SULF1TAB48 PO (19:53)
[2017-07-16] MEDS ORDERED: CHOL10002 PO (19:53)
[2017-07-16] MEDS ORDERED: LACT1CAP39 PO (19:53)
[2017-07-16] MEDS ORDERED: SERT25TA PO (19:53)
[2017-07-16] MEDS ORDERED: HYDR-3980 PO (19:53)
[2017-07-16] MEDS ORDERED: RISP0.5T5 PO (19:53)
[2017-07-16] MEDS ORDERED: SERT50TA PO (19:53)
== END 2017-07-16 18:09 | disposition short-term general hospital (02) | DRG 885 ==
LOC: ER 15:35 → GPS 18:56
PROVIDERS: ADMIT Psychiatry & Neurology Psychiatry; ATTEND Nurse Practitioner Acute Care
DX: F25.9 Schizoaffective disorder, unspecified (principal); N17.0 Acute kidney failure with tubular necrosis; J69.0 Pneumonitis due to inhalation of food and vomit; E43 Unspecified severe protein-calorie malnutrition; J44.0 Chronic obstructive pulmonary disease with (acute) lower respiratory infection; R45.851 Suicidal ideations; R13.10 Dysphagia, unspecified; G20 Parkinson's disease; N39.0 Urinary tract infection, site not specified; D69.6 Thrombocytopenia, unspecified; E87.1 Hypo-osmolality and hyponatremia; Z68.1 Body mass index [BMI] 19.9 or less, adult; F02.80 Dementia in other diseases classified elsewhere, unspecified severity, without behavioral disturbance, psychotic disturbance, mood disturbance, and anxiety; M62.50 Muscle wasting and atrophy, not elsewhere classified, unspecified site; Z74.09 Other reduced mobility; K21.9 Gastro-esophageal reflux disease without esophagitis; R62.7 Adult failure to thrive; Z79.899 Other long term (current) drug therapy; Z87.11 Personal history of peptic ulcer disease; B96.20 Unspecified Escherichia coli [E. coli] as the cause of diseases classified elsewhere; Z16.12 Extended spectrum beta lactamase (ESBL) resistance; D64.9 Anemia, unspecified; E86.0 Dehydration; Z88.0 Allergy status to penicillin; Z91.030 Bee allergy status; R26.81 Unsteadiness on feet; F20.0 Paranoid schizophrenia
CPT/HCPCS: 36415; 70030-TC; 70450; 71010; 83605; 83735; 84100; 84443; 85025; 85730; 87040; 87077; 87086; 93005; A4663; C1758; G0480; G0480-TC; J7030

== ENCOUNTER 2017-07-16 18:22 | Inpatient (IN) | payer MEDICARE, MEDICAID ==
[~2017-07-16] VITALS: Ht 170.2 cm; Wt 50.3 kg
[2017-07-16 18:10] VITALS: BP 100/52
[~2017-07-16 18:22] MED LIST: ACET325T53 PO; ASCO500T9 PO; BISA10SU12 RC; CARB1TAB21 PO; CHOL100062 PO; DOCU250C14 PO; LACT1CAP61 PO; MAG355OR18 PO; MAGN400O6 PO; MULT-1185 PO; NA P133E RC; PANT40TA4 PO; SENN-167 PO
--- NOTE | 2017-07-16 18:27 | NUR ---
PT RECEIVED FROM MHU VIA BED FOR FAILURE TO THRIVE.PT IS ALERT TO HIMSELF.V/S ARE STABLE.
[2017-07-16 19:49] VITALS: BP 105/54
[2017-07-16] MEDS ORDERED: RISP0.5T5 PO (19:53)
[2017-07-16] MEDS ORDERED: LACT1CAP39 PO (19:53)
[2017-07-16] MEDS ORDERED: SERT50TA PO (19:53)
[2017-07-16] MEDS ORDERED: ZINC113P2 TP (19:53)
[2017-07-16] MEDS ORDERED: SULF1TAB48 PO (19:53)
[2017-07-16] MEDS ORDERED: CHOL10002 PO (19:53)
[2017-07-16] MEDS ORDERED: SERT25TA PO (19:53)
[2017-07-16] MEDS ORDERED: HYDR-3980 PO (19:53)
[2017-07-16] MEDS: MORPHINE SULFATE 2 MG/1 ML DISP.SYRIN IV PRN (21:20)
[2017-07-16] MEDS ORDERED: BISACODYL 10 MG SUPP.RECT RC PRN (22:15)
[2017-07-16] MEDS ORDERED: MAG HYDROX/AL HYDROX/SIMETH 30 ML LIQUID UDC PO PRN (22:15)
[2017-07-16] MEDS ORDERED: LEVOFLOXACIN 500 MG/D5W 500 MG in PREMIXED 1 EACH IV SCH (22:15)
[2017-07-16] MEDS ORDERED: MAGNESIUM HYDROXIDE 30 ML LIQUID UDC PO PRN (22:15)
[2017-07-16] MEDS ORDERED: FLEET ENEMA 133 ML BOTTLE RC PRN (22:15)
[2017-07-16] MEDS: ENOXAPARIN SODIUM 40 MG/0.4 ML DISP.SYRIN SQ SCH (22:47)
[2017-07-16] MEDS ORDERED: LEVOFLOXACIN 500 MG/D5W 100 ML ONE (22:51)
[2017-07-16] MEDS ORDERED: ENOXAPARIN SODIUM 40 MG/0.4 ML DISP.SYRIN SQ ONE (22:51)
[2017-07-16] MEDS: IV D5/ 0.9% NACL 1,000 ML IV PRN (22:52)
--- NOTE | 2017-07-17 00:51 | NUR ---
RECEIVED PATIENT AWAKE BUT CONFUSED IN BED. ADMITTED FR PSYCH UNIT TO TELEMETRY DUE TO PNEUMONIA. ALERT AND ORIENTED ONLY TO SELF. INSERTED IV CATH OVER RIGHT FOREARM, STARTED IV D5 SALINE AT 75 ML/HR ORDERED. GIVEN DOSE OF IV ABX. MRSA SWAB DONE. NOTED REDNESS OVER SACRAL AREA. STARTED ON TELE MONITORING, SR WITH PAC'S HR AT 60'S. MAINTAINED ON CONTACT ISOLATION. REFUSED TO EAT, ABLE TO GIVE APPLE SAUCE WITH STRICT ASPIRATION PRECAUTION. PATIENT COMPLAINT OF BODY PAIN GIVEN IV MORPHINE ORDERED. TURNED FROM SIDES TO SIDES OF FIRST STEP MATTRESS. OTHERWISE PATIENT IS SLEEPING AT THIS TIME. WILL CONT TO MONITOR.
[2017-07-17] MEDS ORDERED: MEROPENEM 500 MG VIAL IV ONE (01:16)
[2017-07-17] MEDS: MORPHINE SULFATE 2 MG/1 ML DISP.SYRIN IV PRN ×4 (01:21→21:37)
[2017-07-17 04:00] VITALS: BP 105/64
[2017-07-17] MEDS: CARBIDOPA/LEVODOPA 25-100MG TABLET PO SCH ×5 (05:15→20:51)
[2017-07-17] MEDS: MEROPENEM 0.5 G in IV NORMAL SALINE 50 ML IV SCH ×3 (05:15→21:49)
--- NOTE | 2017-07-17 05:22 | NUR ---
INITIAL PHOTO TAKEN ON SACRAL REDNESS. OTHERWISE PATIENT IS STABLE. VS ARE STABLE. SR WITH PAC'S.
[2017-07-17] MEDS ORDERED: CARBIDOPA/LEVODOPA 25-100MG TABLET ONE (05:24)
[2017-07-17 06:48] LABS: BASOPHILS # (AUTO) 0.1 K/uL (0.0-8.0); BASOPHILS % (AUTO) 0.6 % (0.0-2.0); EOSINOPHILS # (AUTO) 0.4 K/uL (0.0-0.7); EOSINOPHILS % (AUTO) 4.8 % (0.0-7.0); HEMOGLOBIN 12.4 G/DL (14.0-18.0); LYMPHOCYTES # (AUTO) 1.1 K/UL (0.8-4.8); LYMPHOCYTES % (AUTO) 12.6 % (20.5-51.5); MEAN CORPUSCULAR HGB CONC 33 g/dL (32.0-37.0); MEAN CORPUSCULAR VOLUME 89.1 FL (82.0-92.0); MONOCYTES # (AUTO) 0.6 K/UL (0.1-1.30); MONOCYTES % (AUTO) 7.2 % (0.0-11.0); NEUTROPHILS # (AUTO) 6.8 K/UL (1.8-8.9); NEUTROPHILS % (AUTO) 74.8 % (38.5-71.5); PLATELET COUNT (AUTO) 233 K/UL (150-450); RED BLOOD CELL COUNT(AUTO) 4.27 MIL/UL (4.7-6.1)
[2017-07-17 07:10] LABS: IRON, SERUM 111 ug/dL (50-175)
[2017-07-17 07:51] LABS: ALANINE AMINOTRANSFERASE 14 U/L (16-63); ALKALINE PHOSPHATASE 76 U/L (50-136); ASPARTATE AMINOTRANSFERASE 17 U/L (15-37); BILIRUBIN,TOTAL 0.2 mg/dL (0.2-1.0); CARBON DIOXIDE 26 mmol/L (21-32); CHLORIDE 101 mmol/L (98-107); GLUCOSE 88 mg/dL (74-106); MAGNESIUM 2.2 mg/dL (1.8-2.4); PHOSPHOROUS 4.4 mg/dL (2.5-4.9); POTASSIUM 4.7 mmol/L (3.5-5.1); TOTAL PROTEIN, SERUM 7.3 g/dL (6.4-8.2); UREA NITROGEN, BLOOD 22 mg/dL (7-18)
[2017-07-17] MEDS ORDERED: CHOLECALCIFEROL 1,000 UNIT TABLET PO SCH (09:00)
[2017-07-17] MEDS ORDERED: Medication Not On Formulary EA (Multivit-Min/Iron Fum/Folic AC (Multi-Vitamin-Minerals T PO SCH (09:00)
[2017-07-17] MEDS: CHOLECALCIFEROL 1,000 UNIT TABLET PO SCH ×3 (09:48→17:18)
[2017-07-17] MEDS: MULTIVIT, IRON, MIN NO. 8, FA TABLET PO SCH (09:48)
[2017-07-17] MEDS: SERTRALINE HCL 50 MG TABLET PO SCH (09:48)
[2017-07-17] MEDS: ASCORBIC ACID 500 MG TABLET PO SCH (09:51)
[2017-07-17 11:13] VITALS: BP 104/64
[2017-07-17] MEDS: IV D5/ 0.9% NACL 1,000 ML IV PRN (14:59)
[2017-07-17 15:17] VITALS: BP 100/61
[2017-07-17] MEDS ORDERED: LEVOFLOXACIN 250 MG TABLET PO SCH (17:00)
--- NOTE | 2017-07-17 18:32 | NUR ---
END OF SHIFT NOTE: PATIENT IN NO ACUTE DISTRESS THROUGHOUT SHIFT. VSS. PAIN MANAGED WITH MEDICATION PRESCRIBED. NO COUGH NOTED. IVF RUNNING. TURNED AND REPOSITIONED EVERY 2 HOURS AND PRN. NEEDS MET BY STAFF. DVT PUMPS AND FIRST STEP MATTRESS IN PLACE.
[2017-07-17 20:00] VITALS: BP 108/52
--- NOTE | 2017-07-17 20:00 | NUR ---
Report received. Patient awake, able to answer questions but disoriented to place and time. Reoriented. Assessment done. Patient incontinent of urine; cleaned. Turned and repositioned. Noted with tremors of R arm. NAD noted. Addendum: 07/17/17 at 2258 by MARGARITA POLLARD RN Amended: Links added.
[2017-07-17] MEDS: LEVOFLOXACIN 500 MG/D5W 500 MG in PREMIXED 1 EACH IV SCH (20:50)
[2017-07-17] MEDS: SENNOSIDES 1 TABLET PO SCH (20:51)
[2017-07-17] MEDS: risperiDONE 0.5 MG TABLET PO SCH (20:51)
[2017-07-17] MEDS: DOCUSATE SODIUM 250 MG CAPSULE PO SCH (20:51)
[2017-07-17] MEDS ORDERED: Z GUARD REMEDY PASTE 57 GM TUBE TOP PRN (21:00)
--- NOTE | 2017-07-17 21:00 | NUR ---
Po meds given with applesauce. No swallowing difficulty.
[2017-07-17] MEDS: Z GUARD REMEDY PASTE 57 GM TUBE TOP SCH (21:21)
--- NOTE | 2017-07-17 21:37 | NUR ---
Medicated with Morphine IV for generalized pain.
[2017-07-17] MEDS: ENOXAPARIN SODIUM 40 MG/0.4 ML DISP.SYRIN SQ SCH (21:51)
[2017-07-18 04:54] VITALS: BP 117/63
[2017-07-18] MEDS: CARBIDOPA/LEVODOPA 25-100MG TABLET PO SCH ×5 (05:04→21:47)
[2017-07-18] MEDS: MEROPENEM 0.5 G in IV NORMAL SALINE 50 ML IV SCH ×3 (05:04→23:16)
[2017-07-18] MEDS: MORPHINE SULFATE 2 MG/1 ML DISP.SYRIN IV PRN ×3 (05:04→17:42)
[2017-07-18] MEDS: IV D5/ 0.9% NACL 1,000 ML IV PRN ×2 (05:42→21:46)
[2017-07-18] MEDS: PANTOPRAZOLE SODIUM 40 MG TABLET.DR PO SCH (06:30)
--- NOTE | 2017-07-18 06:44 | NUR ---
Pt RESTING COMFORTABLY AT THIS TIME. C/O 09/01 (B) HIP PAIN @ 0500, ADMINISTERED MORPHINE 2mg @ 0504 WITH GOOD EFFECT. VS STABLE THROUGHOUT THE SHIFT. NOW ON CONTACT ISO FOR ESBL OF URINE. AM LABS DRAWN. DAILY WEIGHT TAKEN, 104LBS. IV D5 NS INFUSING @ 75ml/hr TO (R) FA, NO S/S OF INFECTION, LINE PATENT. COMPLIANT WITH MEDS, COOPERATIVE WITH CARE. BED IN LOWEST AND LOCKED POSITION, SIDE RAILS UP x2, CALL LIGHT IN REACH.
[2017-07-18 06:53] LABS: BASOPHILS % (AUTO) 0.5 % (0.0-2.0); EOSINOPHILS # (AUTO) 0.6 K/uL (0.0-0.7); EOSINOPHILS % (AUTO) 6.9 % (0.0-7.0); HEMATOCRIT 35.5 % (40-50); HEMOGLOBIN 11.6 G/DL (14.0-18.0); LYMPHOCYTES % (AUTO) 11.9 % (20.5-51.5); MEAN CORPUSCULAR HEMOGLOBIN 29.6 UUG (27.0-31.0); MEAN CORPUSCULAR HGB CONC 33 g/dL (32.0-37.0); MEAN CORPUSCULAR VOLUME 90.3 FL (82.0-92.0); MONOCYTES # (AUTO) 0.6 K/UL (0.1-1.30); MONOCYTES % (AUTO) 7.6 % (0.0-11.0); NEUTROPHILS # (AUTO) 5.8 K/UL (1.8-8.9); NEUTROPHILS % (AUTO) 73.1 % (38.5-71.5); PLATELET COUNT (AUTO) 215 K/UL (150-450); RED BLOOD CELL COUNT(AUTO) 3.93 MIL/UL (4.7-6.1)
[2017-07-18 07:31] LABS: ALANINE AMINOTRANSFERASE 12 U/L (16-63); ALKALINE PHOSPHATASE 66 U/L (50-136); ASPARTATE AMINOTRANSFERASE 10 U/L (15-37); BILIRUBIN,TOTAL 0.2 mg/dL (0.2-1.0); CARBON DIOXIDE 29 mmol/L (21-32); CHLORIDE 105 mmol/L (98-107); GLUCOSE 89 mg/dL (74-106); PHOSPHOROUS 3.1 mg/dL (2.5-4.9); POTASSIUM 4.4 mmol/L (3.5-5.1); TOTAL PROTEIN, SERUM 6.7 g/dL (6.4-8.2); UREA NITROGEN, BLOOD 15 mg/dL (7-18)
[2017-07-18] MEDS: CHOLECALCIFEROL 1,000 UNIT TABLET PO SCH ×3 (08:53→17:26)
[2017-07-18] MEDS: MULTIVIT, IRON, MIN NO. 8, FA TABLET PO SCH (08:53)
[2017-07-18] MEDS: SERTRALINE HCL 50 MG TABLET PO SCH (08:53)
[2017-07-18] MEDS: ASCORBIC ACID 500 MG TABLET PO SCH (08:53)
[2017-07-18] MEDS: Z GUARD REMEDY PASTE 57 GM TUBE TOP SCH ×2 (08:57→21:49)
[2017-07-18 11:21] VITALS: BP 98/50
[2017-07-18 15:20] VITALS: BP 90/48
--- NOTE | 2017-07-18 19:50 | NUR ---
Patient is on bed, sleeping. Arousable to touch and verbal command. Patient is on air bed. Room air. Alert and oriented to name. Reoriented patient to place. No distress noted. Patient clean and dry. Safety precautions implemented.
[2017-07-18 20:29] VITALS: BP 103/43
[2017-07-18] MEDS: DOCUSATE SODIUM 250 MG CAPSULE PO SCH (21:47)
[2017-07-18] MEDS: risperiDONE 0.5 MG TABLET PO SCH (21:47)
[2017-07-18] MEDS: LACTOBACILLUS RHAMNOSUS GG 1 EACH CAPSULE PO SCH (21:47)
[2017-07-18] MEDS: LEVOFLOXACIN 500 MG/D5W 500 MG in PREMIXED 1 EACH IV SCH (21:48)
[2017-07-18] MEDS: SENNOSIDES 1 TABLET PO SCH (21:48)
[2017-07-18] MEDS: ENOXAPARIN SODIUM 40 MG/0.4 ML DISP.SYRIN SQ SCH (21:49)
[2017-07-19 04:47] VITALS: BP 127/65
[2017-07-19] MEDS: MEROPENEM 0.5 G in IV NORMAL SALINE 50 ML IV SCH ×3 (05:41→21:58)
[2017-07-19] MEDS: PANTOPRAZOLE SODIUM 40 MG TABLET.DR PO SCH (06:12)
[2017-07-19] MEDS: CARBIDOPA/LEVODOPA 25-100MG TABLET PO SCH ×5 (06:12→21:03)
--- NOTE | 2017-07-19 06:35 | NUR ---
Patient is on and off awake, watching TV during the shift. No signs of distress noted. Reposition every 2 hours. Kept clean and dry. Safety measures observed. Continue to observe isolation for ESLB of urine.
[2017-07-19 07:19] LABS: BASOPHILS # (AUTO) 0.1 K/uL (0.0-8.0); BASOPHILS % (AUTO) 0.8 % (0.0-2.0); EOSINOPHILS # (AUTO) 0.7 K/uL (0.0-0.7); EOSINOPHILS % (AUTO) 6.2 % (0.0-7.0); HEMATOCRIT 37.7 % (40-50); HEMOGLOBIN 12.4 G/DL (14.0-18.0); LYMPHOCYTES # (AUTO) 1.5 K/UL (0.8-4.8); LYMPHOCYTES % (AUTO) 13.4 % (20.5-51.5); MEAN CORPUSCULAR HEMOGLOBIN 29.8 UUG (27.0-31.0); MEAN CORPUSCULAR HGB CONC 33 g/dL (32.0-37.0); MEAN CORPUSCULAR VOLUME 90.4 FL (82.0-92.0); MONOCYTES # (AUTO) 0.7 K/UL (0.1-1.30); MONOCYTES % (AUTO) 6.2 % (0.0-11.0); NEUTROPHILS # (AUTO) 8.1 K/UL (1.8-8.9); NEUTROPHILS % (AUTO) 73.4 % (38.5-71.5); PLATELET COUNT (AUTO) 211 K/UL (150-450); RED BLOOD CELL COUNT(AUTO) 4.17 MIL/UL (4.7-6.1)
[2017-07-19 07:26] LABS: WHITE BLOOD COUNT (AUTO) 11.1 K/UL (4.0-11.2)
--- NOTE | 2017-07-19 07:45 | NUR ---
RECEIVED PATIENT AWAKE BUT CONFUSED IN BED. NOTED REDNESS OVER SACRAL AREA. MAINTAINED ON CONTACT ISOLATION. OTHERWISE PATIENT IS SLEEPING AT THIS TIME. WILL CONT TO MONITOR.
[2017-07-19] MEDS: CHOLECALCIFEROL 1,000 UNIT TABLET PO SCH ×3 (08:03→17:05)
[2017-07-19] MEDS: LACTOBACILLUS RHAMNOSUS GG 1 EACH CAPSULE PO SCH ×2 (08:03→21:02)
[2017-07-19] MEDS: SERTRALINE HCL 50 MG TABLET PO SCH (08:03)
[2017-07-19] MEDS: ASCORBIC ACID 500 MG TABLET PO SCH (08:03)
[2017-07-19] MEDS: MULTIVIT, IRON, MIN NO. 8, FA TABLET PO SCH (08:03)
[2017-07-19 08:29] LABS: ALANINE AMINOTRANSFERASE 7 U/L (16-63); ALKALINE PHOSPHATASE 69 U/L (50-136); ASPARTATE AMINOTRANSFERASE 19 U/L (15-37); BILIRUBIN,TOTAL 0.3 mg/dL (0.2-1.0); CARBON DIOXIDE 28 mmol/L (21-32); CHLORIDE 106 mmol/L (98-107); GLUCOSE 82 mg/dL (74-106); MAGNESIUM 2.2 mg/dL (1.8-2.4); PHOSPHOROUS 2.8 mg/dL (2.5-4.9); POTASSIUM 4.8 mmol/L (3.5-5.1); TOTAL PROTEIN, SERUM 6.9 g/dL (6.4-8.2); UREA NITROGEN, BLOOD 14 mg/dL (7-18)
[2017-07-19] MEDS: Z GUARD REMEDY PASTE 57 GM TUBE TOP SCH ×2 (08:37→21:04)
[2017-07-19 11:02] VITALS: BP 98/60
[2017-07-19] MEDS: IV D5/ 0.9% NACL 1,000 ML IV PRN (14:21)
[2017-07-19 15:08] VITALS: BP 100/56
--- NOTE | 2017-07-19 17:30 | NUR ---
Po meds given with applesauce. No swallowing difficulty.
--- NOTE | 2017-07-19 17:35 | NUR ---
Patient is on and off awake, watching TV during the shift. No signs of distress noted. Reposition every 2 hours. Kept clean and dry. Safety measures observed.
[2017-07-19 20:21] VITALS: BP 111/54
--- NOTE | 2017-07-19 21:00 | NUR ---
PATIENT ALERT,CONFUSED,COOPERATIVE,TOOK ALL MEDICATION,ASPIRATION PRECAUTION,ON CONTACT ISOLATION FOR ESBL URINE,TURN AND REPOSITION,BED ALARM ON.
[2017-07-19] MEDS: LEVOFLOXACIN 500 MG/D5W 500 MG in PREMIXED 1 EACH IV SCH (21:02)
[2017-07-19] MEDS: DOCUSATE SODIUM 250 MG CAPSULE PO SCH (21:02)
[2017-07-19] MEDS: SENNOSIDES 1 TABLET PO SCH (21:03)
[2017-07-19] MEDS: risperiDONE 0.5 MG TABLET PO SCH (21:03)
[2017-07-19] MEDS: ENOXAPARIN SODIUM 40 MG/0.4 ML DISP.SYRIN SQ SCH (21:56)
--- NOTE | 2017-07-20 01:00 | NUR ---
TRANSFER OF CARE, REPORT GIVEN TO ANDREA ROSS.PATIENT TO KEEP NPO AFTER MIDNIGHT FOR PEG PLACEMENT IN AM
--- NOTE | 2017-07-20 01:00 | NUR ---
RECEIVED PATIENT (MID SHIFT REPORT), ALERT, IN NO ACUTE DISTRESS. IVF RUNNING, NO INFILTRATION NOTED. SAFETY MEASURES IN PLACE, BED ALARM ON. WILL CONTINUE TO MONITOR.
[2017-07-20] MEDS: CARBIDOPA/LEVODOPA 25-100MG TABLET PO SCH ×6 (05:05→20:25)
[2017-07-20] MEDS: MEROPENEM 0.5 G in IV NORMAL SALINE 50 ML IV SCH ×3 (05:05→21:28)
[2017-07-20] MEDS: IV D5/ 0.9% NACL 1,000 ML IV PRN (05:06)
[2017-07-20 05:28] VITALS: BP 105/60
--- NOTE | 2017-07-20 05:52 | NUR ---
PT SLEPT INTERMITTENTLY, IN NO ACUTE DISTRESS. IV ANTIBIOTIC ADMINISTERED ORDERED, NO S/S OF ADVERSE REACTION NOTED. PT KEPT NPO AFTER MIDNIGHT FOR POSSIBLE PEG PLACEMENT THIS MORNING. ORAL CARE PROVIDED, IVF RUNNING, NO INFILTRATION NOTED. PT KEPT CLEAN/DRY, REPOSITIONED FOR COMFORT. SAFETY MEASURES IN PLACE, BED ALARM ON. WILL CONTINUE TO MONITOR.
[2017-07-20] MEDS: PANTOPRAZOLE SODIUM 40 MG TABLET.DR PO SCH (06:44)
[2017-07-20 07:13] LABS: BASOPHILS # (AUTO) 0.1 K/uL (0.0-8.0); BASOPHILS % (AUTO) 0.6 % (0.0-2.0); EOSINOPHILS # (AUTO) 0.4 K/uL (0.0-0.7); EOSINOPHILS % (AUTO) 4.4 % (0.0-7.0); HEMATOCRIT 37.9 % (40-50); HEMOGLOBIN 12.4 G/DL (14.0-18.0); LYMPHOCYTES # (AUTO) 0.8 K/UL (0.8-4.8); LYMPHOCYTES % (AUTO) 8.8 % (20.5-51.5); MEAN CORPUSCULAR HEMOGLOBIN 29.5 UUG (27.0-31.0); MEAN CORPUSCULAR HGB CONC 33 g/dL (32.0-37.0); MEAN CORPUSCULAR VOLUME 90.3 FL (82.0-92.0); MONOCYTES # (AUTO) 0.6 K/UL (0.1-1.30); NEUTROPHILS # (AUTO) 7.5 K/UL (1.8-8.9); NEUTROPHILS % (AUTO) 80.2 % (38.5-71.5); PLATELET COUNT (AUTO) 223 K/UL (150-450); WHITE BLOOD COUNT (AUTO) 9.4 K/UL (4.0-11.2)
[2017-07-20 07:14] LABS: ALANINE AMINOTRANSFERASE 11 U/L (16-63); ALKALINE PHOSPHATASE 72 U/L (50-136); ASPARTATE AMINOTRANSFERASE 18 U/L (15-37); BILIRUBIN,TOTAL 0.4 mg/dL (0.2-1.0); CARBON DIOXIDE 26 mmol/L (21-32); CHLORIDE 106 mmol/L (98-107); CREATININE 0.8 mg/dL (0.6-1.3); GLUCOSE 96 mg/dL (74-106); PHOSPHOROUS 2.3 mg/dL (2.5-4.9); POTASSIUM 4.1 mmol/L (3.5-5.1); TOTAL PROTEIN, SERUM 6.9 g/dL (6.4-8.2); UREA NITROGEN, BLOOD 13 mg/dL (7-18)
--- NOTE | 2017-07-20 08:45 | NUR ---
CALLED [facility] AND WAS DIRECTED TO RICO CARLSON WHO ACCORDING TO THE DELIVERY MANAGER IS IN CHARGE OF THE PATIENT, BUT HE WAS NOT AVAILABLE SO I LEFT HIM A DETAILED MESSAGE TO CALL [facility] IN REGARDS TO MR LAL.
[2017-07-20] MEDS: LACTOBACILLUS RHAMNOSUS GG 1 EACH CAPSULE PO SCH ×2 (09:00→20:26)
[2017-07-20] MEDS: SERTRALINE HCL 50 MG TABLET PO SCH (09:00)
[2017-07-20] MEDS: CHOLECALCIFEROL 1,000 UNIT TABLET PO SCH ×3 (09:00→17:39)
[2017-07-20] MEDS: ASCORBIC ACID 500 MG TABLET PO SCH (09:00)
[2017-07-20] MEDS: MULTIVIT, IRON, MIN NO. 8, FA TABLET PO SCH (09:00)
--- NOTE | 2017-07-20 09:00 | NUR ---
RICO BREWSTER FROM THE [facility] RETURNED CALL AND I INFORMED HIM OF THE PROPOSAL TO INSERT A GASTROSTOMY FEEDING TUBE BY DR LOPES THE GASTRO ENTEROLOGIST TODAY PATIENT HAS NOT BEEN EATING AND LOOSING SO MUCH WEIGHT AND HE STATED THAT HE IS GIVING HIS FULL CONSCENT AND THIS TELEPHONE CONSCENT AND CONVERSATION WAS WITHNESSED BY THE PAINT ROLLER COVERS SUPERVISOR.PATIENT REMAINS NOTHING BY MOUTH AT THIS TIME AWAITING FOR DR LOPES.
[2017-07-20] MEDS ORDERED: POTASSIUM PHOSPHATE MM 7.5 MMOL in IV DEXTROSE 5% 100 ML IV ONE (10:15)
[2017-07-20] MEDS: Z GUARD REMEDY PASTE 57 GM TUBE TOP SCH ×2 (10:27→20:30)
[2017-07-20] MEDS ORDERED: diphenhydrAMINE 50 MG/1 ML VIAL IV PRN (11:00)
--- NOTE | 2017-07-20 11:00 | NUR ---
YANETH HAS OLD REDENED AREAS ON HOS FOREHEAD CHEEK AND NECK AREA STATED THAT ITS ITCHY PIPE LINE REPAIRER LAVERNE AWARE WITH NEW ORDERS AND NOTED.
[2017-07-20 11:52] VITALS: BP 154/75
--- NOTE | 2017-07-20 12:39 | NUR ---
PATIENT REMAINS NOTHING BY MOUTH AT THIS TIME PENDING DECISION FROM THE GASTRO ENTEROLOGIST LAVERNE SAFETY REPRESENTATIVE AWARE AND STATED THAT SHE IS TRYING TO GET IN CONTACT WITH DR LOPES.
--- NOTE | 2017-07-20 14:30 | NUR ---
DR LOPES HERE TO SEE PATIENT AND STATED THAT PATIENT WILL EGD PLACEMENT TOMORROW.
[2017-07-20] MEDS: MORPHINE SULFATE 2 MG/1 ML DISP.SYRIN IV PRN (14:45)
--- NOTE | 2017-07-20 14:45 | NUR ---
NOTED PATIENT TO BE RESTLESS WITH FACIAL GRIMACING MEDICATED WITH MORPHIONE FOR PAIN TURNED AND REPOSITIONED AND MADE COMFORTABLE AND WILL CONTINUE TO OBSERVE.
[2017-07-20] MEDS: HYDROCORTISONE 0.5% CREAM 28.35 GM TUBE TOP SCH ×2 (15:36→20:30)
--- NOTE | 2017-07-20 15:37 | NUR ---
Discharge Plan: He will be discharged back to [facility] [[address] [place],[address];[phone]; ]. Aileen confirmed with LPS Conservator-Gabe Hughes [phone] when he was at [facility]. Left a message to the conservator. Spoke to CJ, admissions from [facility], confirmed that they will re-admit once stable.
[2017-07-20 15:53] VITALS: BP 116/47
--- NOTE | 2017-07-20 18:00 | NUR ---
RESTING ATE A LITTLE DINNER MADE COMFORTABLE NOT IN DISTRESS AT THIS TIME.
--- NOTE | 2017-07-20 19:30 | NUR ---
RECEIVED PATIENT IN BED, AWAKE, VERBALLY RESPONSIVE, REMAINS ON CONTACT ISOLATION FOR ESBL & ECOLI OF URINE, NO SOB NO CHEST PAIN NOTED, KEPT CLEAN AND DRY, INCONTINENT OF BLADDER, TX CONT ON SACRAL REDNESS, AIR MATTRESS IN USE, CONT TO MONITOR.
[2017-07-20] MEDS: LEVOFLOXACIN 500 MG/D5W 500 MG in PREMIXED 1 EACH IV SCH (20:24)
[2017-07-20] MEDS: risperiDONE 0.5 MG TABLET PO SCH (20:25)
[2017-07-20] MEDS: DOCUSATE SODIUM 250 MG CAPSULE PO SCH (20:26)
[2017-07-20] MEDS: SENNOSIDES 1 TABLET PO SCH (20:29)
[2017-07-20 20:36] VITALS: BP 110/62
[2017-07-20] MEDS: ENOXAPARIN SODIUM 40 MG/0.4 ML DISP.SYRIN SQ SCH (21:29)
[2017-07-21] VITALS (8 sets, daily range): BP systolic 120–133; BP diastolic 52–68
--- NOTE | 2017-07-21 | NUR ---
PATIENT IS NPO AT THIS TIME. CONT TO MONITOR. KEPT CLEAN AND DRY.
[2017-07-21] MEDS: IV D5/ 0.9% NACL 1,000 ML IV PRN ×2 (00:11→17:13)
[2017-07-21] MEDS: MEROPENEM 0.5 G in IV NORMAL SALINE 50 ML IV SCH ×3 (05:13→22:35)
[2017-07-21] MEDS: CARBIDOPA/LEVODOPA 25-100MG TABLET PO SCH ×5 (05:16→20:55)
[2017-07-21] MEDS: PANTOPRAZOLE SODIUM 40 MG TABLET.DR PO SCH (05:23)
--- NOTE | 2017-07-21 05:40 | NUR ---
PATIENT SLEPT MOST OF THE NIGHT, CONT ON CONTACT ISOLATION, NO SOB NO CHEST PAIN, TURN AND REPOSITION, KEPT CLEAN AND DRY, DENIES PAIN AT THIS TIME, KEPT COMFORTABLE.
[2017-07-21 06:50] LABS: BASOPHILS % (AUTO) 0.2 % (0.0-2.0); EOSINOPHILS # (AUTO) 0.6 K/uL (0.0-0.7); EOSINOPHILS % (AUTO) 5.5 % (0.0-7.0); HEMATOCRIT 38.8 % (40-50); HEMOGLOBIN 12.4 G/DL (14.0-18.0); LYMPHOCYTES % (AUTO) 9.2 % (20.5-51.5); MEAN CORPUSCULAR HEMOGLOBIN 28.8 UUG (27.0-31.0); MEAN CORPUSCULAR HGB CONC 32 g/dL (32.0-37.0); MEAN CORPUSCULAR VOLUME 90.2 FL (82.0-92.0); MONOCYTES # (AUTO) 0.6 K/UL (0.1-1.30); MONOCYTES % (AUTO) 5.9 % (0.0-11.0); NEUTROPHILS # (AUTO) 8.4 K/UL (1.8-8.9); NEUTROPHILS % (AUTO) 79.2 % (38.5-71.5); PLATELET COUNT (AUTO) 245 K/UL (150-450); WHITE BLOOD COUNT (AUTO) 10.6 K/UL (4.0-11.2)
[2017-07-21 07:11] LABS: ALANINE AMINOTRANSFERASE 12 U/L (16-63); ALKALINE PHOSPHATASE 72 U/L (50-136); ASPARTATE AMINOTRANSFERASE 20 U/L (15-37); BILIRUBIN,TOTAL 0.3 mg/dL (0.2-1.0); CARBON DIOXIDE 29 mmol/L (21-32); CHLORIDE 107 mmol/L (98-107); GLUCOSE 94 mg/dL (74-106); PHOSPHOROUS 2.5 mg/dL (2.5-4.9); POTASSIUM 4.4 mmol/L (3.5-5.1); UREA NITROGEN, BLOOD 14 mg/dL (7-18)
[2017-07-21] MEDS ORDERED: LIDOCAINE HCL 1% 20 ML VIAL MC ONE (07:23)
[2017-07-21] MEDS ORDERED: PROPOFOL 200 MG/20 ML BOTTLE IV ONE (07:23)
[2017-07-21] MEDS ORDERED: IV NORMAL SALINE 1000 ML BAG IV ONE (07:23)
[2017-07-21] MEDS: HYDROCORTISONE 0.5% CREAM 28.35 GM TUBE TOP SCH ×2 (08:06→20:57)
[2017-07-21] MEDS: Z GUARD REMEDY PASTE 57 GM TUBE TOP SCH ×2 (08:06→20:56)
[2017-07-21] MEDS: LACTOBACILLUS RHAMNOSUS GG 1 EACH CAPSULE PO SCH ×2 (08:08→20:55)
[2017-07-21] MEDS: MULTIVIT, IRON, MIN NO. 8, FA TABLET PO SCH (08:08)
[2017-07-21] MEDS: ASCORBIC ACID 500 MG TABLET PO SCH (08:08)
[2017-07-21] MEDS: CHOLECALCIFEROL 1,000 UNIT TABLET PO SCH ×3 (08:08→16:44)
[2017-07-21] MEDS: SERTRALINE HCL 50 MG TABLET PO SCH (08:09)
--- NOTE | 2017-07-21 08:36 | NUR ---
PATIENT PICKED UP BY BED TO GI LAB FOR GT INSERTION ORDERED IN SATISFACTORY CONDITION PATIENT IS ALERT TO SELF ONLY WITH CONFUSSION AND DISORIENTATION AT THIS TIME REMAINS NPO ORDERED.
[2017-07-21] MEDS ORDERED: CLINDAMYCIN PHOSPHATE 600 MG/4 ML VIAL ONE (09:04)
--- NOTE | 2017-07-21 10:30 | NUR ---
PATIENT RETURNED BACK TO HIS ROOM BY BED S/P GASTROSTOMY PLACEMENT WITH ABDOMINAL BINDER AND GT SITE INTACT.ON O2 AT 2L/M BY NASAL CANULA.PATIENT IS AWAKE ALERT TO SELF WITH CONFUSSION AND DISORIENTATION MADE COMFORTABLE AND WILL OBSERVE.
[2017-07-21 10:33] LABS: BAND % (MANUAL) 13 % (0-10); EOSINOPHILS % (MANUAL) 8 % (0-8); LYMPHOCYTES % (MANUAL) 7 % (20-40); MONOCYTES % (MANUAL) 11 % (2-10); NEUTROPHILS % (MANUAL) 61 % (42-75)
[2017-07-21] MEDS: MORPHINE SULFATE 2 MG/1 ML DISP.SYRIN IV PRN ×3 (10:37→22:58)
--- NOTE | 2017-07-21 10:37 | NUR ---
NOTED PATIENT WITH FACIAL GRIMACING AND RESTLESS AND WHEN ASKED WHAT WAS WRONG HE STATED "MY STOMACH" MEDICATED WITH MORPHINE ORDERED AND MADE COMFORTABLE.
[2017-07-21] MEDS: ACETAMINOPHEN 325 MG TABLET PO PRN (13:11)
--- NOTE | 2017-07-21 16:37 | NUR ---
SPOKE WITH ELECTRO MECHANICAL DESIGNER WITH RECOMENDATIONS DR LUIS ALMAGUER NOTIFIED WITH ORDERS AND NOTED
--- NOTE | 2017-07-21 17:49 | NUR ---
TOLERATING GT FLUSHES ORDERED WITH NO VOMITING AT THIS TIME.PATIENT WAS MEDICATED ORDERED FOR FACIAL GRIMACING MADE COMFORTABLE.
--- NOTE | 2017-07-21 19:03 | NUR ---
NOTED THAT THERE HAS NOT BEEN ANY BOWEL MOVEMENT DOCUMENTED FOR A FEW DAYS PATIENT MEDICATED VIA GT AND WILL OBSERVE AND ENDORSE FOR RESULTS.
[2017-07-21] MEDS: risperiDONE 0.5 MG TABLET PO SCH (20:55)
[2017-07-21] MEDS: DOCUSATE SODIUM 250 MG CAPSULE PO SCH (20:55)
[2017-07-21] MEDS: SENNOSIDES 1 TABLET PO SCH (20:55)
[2017-07-21] MEDS: LEVOFLOXACIN 500 MG/D5W 500 MG in PREMIXED 1 EACH IV SCH (21:23)
[2017-07-21] MEDS ORDERED: LEVOFLOXACIN 500 MG/D5W 100 ML ONE (21:30)
[2017-07-21] MEDS: ENOXAPARIN SODIUM 40 MG/0.4 ML DISP.SYRIN SQ SCH (22:37)
[2017-07-22 04:00] VITALS: BP 103/63
[2017-07-22] MEDS: MEROPENEM 0.5 G in IV NORMAL SALINE 50 ML IV SCH ×3 (05:06→22:17)
[2017-07-22] MEDS: CARBIDOPA/LEVODOPA 25-100MG TABLET PO SCH ×5 (05:06→20:52)
[2017-07-22] MEDS ORDERED: NUTREN 2.0 1,000 ML LIQUID GT SCH (06:00)
[2017-07-22] MEDS: PANTOPRAZOLE SODIUM 40 MG TABLET.DR PO SCH (06:20)
--- NOTE | 2017-07-22 07:30 | NUR ---
RECIEVED PT LYING IN BED WITH HOB UP AT 45DEGREES. PT IS AWAKE, AND ORIENTED TO HIS NAME ONLY. PT HAS A PARKINSONS, AND MOSTLY SHAKING HIS HANDS. SPEECH IS CLEAR, PT HAS A MASK LIKE FACE BUT PT IS COOP[ERATIVE.
--- NOTE | 2017-07-22 10:00 | NUR ---
REPOSITION PT FROM SIDE TO SIDE WITH MAXIMUM ASSIST. IVF INFUSING WELL VIA LEFT FA. PT ON O2 2LNC. LUNGS CLEAR BUT DECREASE BREATHSOUNDS AT THE BASES.. NO PRODUCTIVE COUGHS NOTED.
[2017-07-22] MEDS: CHOLECALCIFEROL 1,000 UNIT TABLET PO SCH ×3 (10:12→17:08)
[2017-07-22] MEDS: LACTOBACILLUS RHAMNOSUS GG 1 EACH CAPSULE PO SCH ×2 (10:12→20:55)
[2017-07-22] MEDS: SERTRALINE HCL 50 MG TABLET PO SCH (10:12)
[2017-07-22] MEDS: MULTIVIT, IRON, MIN NO. 8, FA TABLET PO SCH (10:13)
[2017-07-22] MEDS: ASCORBIC ACID 500 MG TABLET PO SCH (10:13)
[2017-07-22] MEDS: HYDROCORTISONE 0.5% CREAM 28.35 GM TUBE TOP SCH ×2 (10:14→20:52)
[2017-07-22] MEDS: Z GUARD REMEDY PASTE 57 GM TUBE TOP SCH ×2 (10:14→20:52)
[2017-07-22] MEDS: IV D5/ 0.9% NACL 1,000 ML IV PRN (10:40)
--- NOTE | 2017-07-22 11:00 | NUR ---
ABDOEN IS SOFT. GT SITE IS INTACT. TUBE FEEDING IN PROGRESS AT 10ML/HR. NO RESIDUALS NOTED AT THIS TIME.
[2017-07-22 11:24] VITALS: BP 136/64
--- NOTE | 2017-07-22 11:30 | NUR ---
SEEN AND EXANIMED BY DR RUIZ WITH NEW ORDER. PT BEING DISCHARGED BACK TO THE HOME.
--- NOTE | 2017-07-22 12:00 | NUR ---
PT'S SKIN ON HIS COCCYCX AREA IS LOOKING RED BUT NO SKIN BREAKDOWN. NOTED A SLIHGLY SWOLLEN ON HIS PENILE AREA....INCONTINENT OF URINE
--- NOTE | 2017-07-22 14:00 | NUR ---
TUBE FEEDING INCREASED UP TO 20ML/HR. NO RESIDUAL NOTED.
[2017-07-22] MEDS: MORPHINE SULFATE 2 MG/1 ML DISP.SYRIN IV PRN (15:00)
--- NOTE | 2017-07-22 15:00 | NUR ---
PT IS OFF ISOLATION PER MD.
[2017-07-22 15:35] VITALS: BP 113/75
--- NOTE | 2017-07-22 17:30 | NUR ---
PM CARE RENDERED. NO APPARENT DISTRESS NOTED.
--- NOTE | 2017-07-22 17:30 | NUR ---
PT SUPPOSED TO GO TO [facility] BUT NO ROOM AVAILABLE PER LEGAL COUNSEL. IS AWARE.
--- NOTE | 2017-07-22 18:20 | NUR ---
O2SAT 99% ON 3LNC. O2 OFF FOR NOW.
--- NOTE | 2017-07-22 19:45 | NUR ---
Pt alert, awake, and in no distress. Peg site clean and dry with 20cc Neutren. Continue antibiotic Levaquin. No complaints of pain at this time. Vital signs WNL.
[2017-07-22 20:00] VITALS: BP 111/55
[2017-07-22] MEDS: LEVOFLOXACIN 500 MG/D5W 500 MG in PREMIXED 1 EACH IV SCH (20:51)
[2017-07-22] MEDS: DOCUSATE SODIUM 250 MG CAPSULE PO SCH (20:52)
[2017-07-22] MEDS: SENNOSIDES 1 TABLET PO SCH (20:52)
[2017-07-22] MEDS: risperiDONE 0.5 MG TABLET PO SCH (20:52)
[2017-07-22] MEDS: ENOXAPARIN SODIUM 40 MG/0.4 ML DISP.SYRIN SQ SCH (21:15)
--- NOTE | 2017-07-23 01:00 | NUR ---
Pt asleep. No reaction to current Levaquin. Denies any pain, dizziness, or shortness of breathe. Nutrent feeding now at 30cc/hr. Continue to monitor.
[2017-07-23] MEDS: IV D5/ 0.9% NACL 1,000 ML IV PRN (02:48)
[2017-07-23 05:00] VITALS: BP 132/60
[2017-07-23] MEDS: MEROPENEM 0.5 G in IV NORMAL SALINE 50 ML IV SCH (05:29)
[2017-07-23] MEDS: CARBIDOPA/LEVODOPA 25-100MG TABLET PO SCH ×5 (06:03→20:24)
[2017-07-23] MEDS: PANTOPRAZOLE SODIUM 40 MG TABLET.DR PO SCH (06:03)
[2017-07-23] MEDS: ASCORBIC ACID 500 MG TABLET PO SCH (08:04)
[2017-07-23] MEDS: MULTIVIT, IRON, MIN NO. 8, FA TABLET PO SCH (08:04)
[2017-07-23] MEDS: CHOLECALCIFEROL 1,000 UNIT TABLET PO SCH ×3 (08:04→17:04)
[2017-07-23] MEDS: SERTRALINE HCL 50 MG TABLET PO SCH (08:04)
[2017-07-23] MEDS: LACTOBACILLUS RHAMNOSUS GG 1 EACH CAPSULE PO SCH ×2 (08:04→20:25)
[2017-07-23] MEDS: HYDROCORTISONE 0.5% CREAM 28.35 GM TUBE TOP SCH ×2 (08:05→20:55)
[2017-07-23] MEDS: Z GUARD REMEDY PASTE 57 GM TUBE TOP SCH ×2 (08:05→20:56)
--- NOTE | 2017-07-23 08:36 | NUR ---
RECEIVED PATIENT IN BED, AWAKE, VERBALLY RESPONSIVE, REMAINS ON CONTACT ISOLATION FOR ESBL OF URINE, NO SOB NO CHEST PAIN NOTED, KEPT CLEAN AND DRY, INCONTINENT OF BLADDER, TX CONT ON SACRAL REDNESS, AIR MATTRESS IN USE, call light with in reach
[2017-07-23 11:40] VITALS: BP 130/67
[2017-07-23 15:33] VITALS: BP 137/78
--- NOTE | 2017-07-23 19:10 | NUR ---
Pt in bed with PEG risisdual 5cc. Pt noted with hep lock on right wrist. Denies any pain or SOB at this time. No s/s of acute distress.
[2017-07-23 20:00] VITALS: BP 125/63
[2017-07-23] MEDS: SENNOSIDES 1 TABLET PO SCH (20:24)
[2017-07-23] MEDS: risperiDONE 0.5 MG TABLET PO SCH (20:24)
[2017-07-23] MEDS: DOCUSATE SODIUM 250 MG CAPSULE PO SCH (20:25)
[2017-07-23] MEDS: ENOXAPARIN SODIUM 40 MG/0.4 ML DISP.SYRIN SQ SCH (21:20)
--- NOTE | 2017-07-24 01:00 | NUR ---
PT SLEEPING IN NO ACUTE DISTRESS. NO COMPLICATIONS IN CURRENT TUBE FEEDING. CONTINUE TO MONITOR. DENIES ANY PAIN.
[2017-07-24 05:28] VITALS: BP 141/65
[2017-07-24] MEDS: NUTREN 2.0 1,000 ML LIQUID GT PRN (05:55)
--- NOTE | 2017-07-24 06:05 | NUR ---
PT ALERT IN BED IN NO ACUTE DISTRESS. NEUTREN TUBE FEEDING STOPPED [id number]. PT TOLERATED FEEDING WELL 50CC/HR. DENIES ANY PAIN AT THIS TIME.
[2017-07-24] MEDS: PANTOPRAZOLE SODIUM 40 MG TABLET.DR PO SCH (06:13)
[2017-07-24] MEDS: CARBIDOPA/LEVODOPA 25-100MG TABLET PO SCH ×5 (06:13→20:30)
--- NOTE | 2017-07-24 07:30 | NUR ---
RECEIVED PATIENT AWAKE BUT CONFUSED IN BED. NOTED REDNESS OVER SACRAL AREA. MAINTAINED ON CONTACT ISOLATION. OTHERWISE PATIENT IS SLEEPING AT THIS TIME. WILL CONT TO MONITOR
[2017-07-24] MEDS: LACTOBACILLUS RHAMNOSUS GG 1 EACH CAPSULE PO SCH ×2 (08:01→20:30)
[2017-07-24] MEDS: HYDROCORTISONE 0.5% CREAM 28.35 GM TUBE TOP SCH ×2 (08:01→20:38)
[2017-07-24] MEDS: CHOLECALCIFEROL 1,000 UNIT TABLET PO SCH ×3 (08:01→16:43)
[2017-07-24] MEDS: MULTIVIT, IRON, MIN NO. 8, FA TABLET PO SCH (08:01)
[2017-07-24] MEDS: SERTRALINE HCL 50 MG TABLET PO SCH (08:01)
[2017-07-24] MEDS: ASCORBIC ACID 500 MG TABLET PO SCH (08:01)
[2017-07-24] MEDS: Z GUARD REMEDY PASTE 57 GM TUBE TOP SCH ×2 (08:02→20:42)
[2017-07-24 11:18] VITALS: BP 108/50
[2017-07-24 15:47] VITALS: BP 153/100
--- NOTE | 2017-07-24 19:16 | NUR ---
RECEIVED IN BED, HOB, TOLERATE GTF, NO NAUSEA NO VOMITING NOTED, NO DIARRHEA NOTED, NO RESIDUAL NOTED, TURN AND REPOSITION, KEPT CLEAN AND DRY. NO S/S OF DISTRESS.
[2017-07-24 20:08] VITALS: BP 104/58
[2017-07-24] MEDS: DOCUSATE SODIUM 250 MG CAPSULE PO SCH (20:30)
[2017-07-24] MEDS: risperiDONE 0.5 MG TABLET PO SCH (20:30)
[2017-07-24] MEDS: SENNOSIDES 1 TABLET PO SCH (20:32)
[2017-07-24] MEDS: ACETAMINOPHEN 325 MG TABLET PO PRN (20:41)
--- NOTE | 2017-07-25 04:58 | NUR ---
PATIENT SLEPT MOST OF THE NIGHT, NO SOB NO CHEST PAIN, HOB, TOLERATE GTF WELL, NO NAUSEA NO VOMITING NOTED, NO RESIDUAL NOTED, TURN AND REPOSITION, KEPT CLEAN AND DRY, TX CONT ON ANAYELI AREA REDNESS.
[2017-07-25] MEDS: NUTREN 2.0 1,000 ML LIQUID GT PRN (05:00)
[2017-07-25 05:38] VITALS: BP 89/47
[2017-07-25] MEDS: CARBIDOPA/LEVODOPA 25-100MG TABLET PO SCH ×5 (05:46→20:57)
[2017-07-25] MEDS: PANTOPRAZOLE SODIUM 40 MG TABLET.DR PO SCH (06:00)
--- NOTE | 2017-07-25 08:00 | NUR ---
awake onrounds with head of bed elevated, restarted tube fdg at 50ml/hr via Gtube- no residual noted, oral care done, on room air- no shortness of breath noted, on first step mattress, incontinent of stools, washed and kept clean and dry, redness noted on scrotum, perineal and rectal area, z guard applied, repositioned to side with heels off loaded wisth pillows-no redness noted on heels, safety measures maintained
[2017-07-25] MEDS: MULTIVIT, IRON, MIN NO. 8, FA TABLET PO SCH (09:06)
[2017-07-25] MEDS: ASCORBIC ACID 500 MG TABLET PO SCH (09:06)
[2017-07-25] MEDS: LACTOBACILLUS RHAMNOSUS GG 1 EACH CAPSULE PO SCH ×2 (09:06→20:57)
[2017-07-25] MEDS: SERTRALINE HCL 50 MG TABLET PO SCH (09:06)
[2017-07-25] MEDS: CHOLECALCIFEROL 1,000 UNIT TABLET PO SCH ×3 (09:06→17:11)
[2017-07-25] MEDS: HYDROCORTISONE 0.5% CREAM 28.35 GM TUBE TOP SCH ×2 (09:07→21:12)
[2017-07-25] MEDS: Z GUARD REMEDY PASTE 57 GM TUBE TOP SCH ×2 (09:07→21:12)
[2017-07-25 11:38] VITALS: BP 94/46
--- NOTE | 2017-07-25 12:00 | NUR ---
tolerating tube feeding well, water flushes done q4h with 100ml, aspiration precautions observed
[2017-07-25 16:10] VITALS: BP 92/55
--- NOTE | 2017-07-25 17:58 | NUR ---
no distress noted, head of bed elevated, aspiration precautions observed, repositioned q2h with heels off loaded at all times, no redness on heels noted, alert, asking for oral food, explained that he has a tube in his abdomen for food and medications, tremors of upper extremities on upper extremities noted- pt on sinemet, all needs attended and met, on bed alarm
--- NOTE | 2017-07-25 19:30 | NUR ---
RECEIVED PATIENT IN BED, HOB GTF TOLERATE WELL NO RESIDUAL NO N/V NOTED NO DIARRHEA NOTED, COMPLAIN OF BODY PAIN, WILL MEDICATE FOR PAIN, TURN AND REPOSITION, KEPT CLEAN AND DRY.
[2017-07-25 20:00] VITALS: BP 93/48
[2017-07-25] MEDS: risperiDONE 0.5 MG TABLET PO SCH (20:57)
[2017-07-25] MEDS: DOCUSATE SODIUM 250 MG CAPSULE PO SCH (20:57)
[2017-07-25] MEDS: ACETAMINOPHEN 325 MG TABLET PO PRN (20:57)
[2017-07-25] MEDS: SENNOSIDES 1 TABLET PO SCH (20:58)
[2017-07-26 04:00] VITALS: BP 101/56
[2017-07-26] MEDS: NUTREN 2.0 1,000 ML LIQUID GT PRN (05:49)
[2017-07-26] MEDS: CARBIDOPA/LEVODOPA 25-100MG TABLET PO SCH ×5 (06:04→20:47)
[2017-07-26] MEDS: PANTOPRAZOLE SODIUM 40 MG TABLET.DR PO SCH (06:04)
[2017-07-26 08:00] VITALS: BP 107/47
--- NOTE | 2017-07-26 08:00 | NUR ---
awake, asking if it's time to eat and to take his medications- informed that food and medications will be given via GT, Nutren infusing at 50ml/hr and no residual obtained, kept on aspiration precaution with head of bed elevated, incontinent of stool and urine, noted scrotum and penis swollen and red, washed and kept clean and dry, Z guard applied, scrotum elevated on rolled towel, safety measures maintained
[2017-07-26] MEDS: LACTOBACILLUS RHAMNOSUS GG 1 EACH CAPSULE PO SCH ×2 (08:22→20:47)
[2017-07-26] MEDS: ASCORBIC ACID 500 MG TABLET PO SCH (08:23)
[2017-07-26] MEDS: MULTIVIT, IRON, MIN NO. 8, FA TABLET PO SCH (08:23)
[2017-07-26] MEDS: CHOLECALCIFEROL 1,000 UNIT TABLET PO SCH ×3 (08:23→17:29)
[2017-07-26] MEDS: SERTRALINE HCL 50 MG TABLET PO SCH (08:23)
[2017-07-26] MEDS: HYDROCORTISONE 0.5% CREAM 28.35 GM TUBE TOP SCH ×2 (08:25→20:48)
[2017-07-26] MEDS: Z GUARD REMEDY PASTE 57 GM TUBE TOP SCH ×2 (08:28→20:48)
--- NOTE | 2017-07-26 09:30 | NUR ---
Dr Carlisle here and informed of scrotal and penile edema- states will look at it
[2017-07-26 11:44] VITALS: BP 107/47
--- NOTE | 2017-07-26 12:00 | NUR ---
tolerating tube fdg well, repositioned q 2h with heels off loaded at all times, all needs attended and met, no distress noted
[2017-07-26 16:10] VITALS: BP 102/49
--- NOTE | 2017-07-26 18:46 | NUR ---
resting in bed, denies of pain, tube fdg infusing and tolerating well, no distress noted, alert during shift and able to answer simple questions
--- NOTE | 2017-07-26 19:30 | NUR ---
RECEIVED PATIENT LAYING COMFORTABLY IN BED. NO ACUTE DISTRESS NOTED. PATIENT IS ORIENTED TO SELF ONLY. SKIN MOSHER, SCROTUM AND PENIS AREA RED AND ENLARGED. ACCORDING TO AM NURSE MD FAROOQ AWARE. SACRAL REDNESS. GTUBE PATENT AND INTACT. SAFETY INITIATED. CALL LIGHT WITHIN REACH. WILL CONTINUE TO MONITOR.
[2017-07-26 20:07] VITALS: BP 107/53
[2017-07-26] MEDS: DOCUSATE SODIUM 250 MG CAPSULE PO SCH (20:47)
[2017-07-26] MEDS: SENNOSIDES 1 TABLET PO SCH (20:47)
[2017-07-26] MEDS: risperiDONE 0.5 MG TABLET PO SCH (20:47)
[2017-07-27] MEDS: NUTREN 2.0 1,000 ML LIQUID GT PRN (03:01)
[2017-07-27] MEDS: CARBIDOPA/LEVODOPA 25-100MG TABLET PO SCH ×5 (05:14→20:16)
[2017-07-27] MEDS: ACETAMINOPHEN 325 MG TABLET PO PRN ×2 (05:14→20:16)
[2017-07-27] MEDS: PANTOPRAZOLE SODIUM 40 MG TABLET.DR PO SCH (06:13)
--- NOTE | 2017-07-27 06:20 | NUR ---
PATIENT SLEPT INTERMITTENTLY T/O THE SHIFT. NO ACUTE DISTRESS NOTED. TOLERATING TUBE FEEDING. GOAL MET. STOPPED TUBE FEEDING FROM 4-6 AM. RESTART TUBE FEEDING AT 6AM. RE-ORIENTED NECESSARY . BM X2, TURN AND REPOSITIONED Q 2H. ZGUARD APPLIED IN SACRAL. NOTED SCROTUM AND PENIS ENLARGEMENT. SAFETY AND COMFORT MEASURES MAINTAINED T/O SHIFT. VSS. WILL CONTINUE TO MONITOR.
[2017-07-27 06:44] VITALS: BP 104/84
--- NOTE | 2017-07-27 08:00 | NUR ---
awake, oriented to self only, tube fdg infusing at 50ml/hr- no residual noted, head of bed elevated, oral care given , repositioned to right side with heels off loaded with pillows, scrotum and penile area less swollen, kept area clean and dry and elevated on rolled towel. Side rails up
[2017-07-27] MEDS: ASCORBIC ACID 500 MG TABLET PO SCH (08:18)
[2017-07-27] MEDS: MULTIVIT, IRON, MIN NO. 8, FA TABLET PO SCH (08:18)
[2017-07-27] MEDS: SERTRALINE HCL 50 MG TABLET PO SCH (08:18)
[2017-07-27] MEDS: CHOLECALCIFEROL 1,000 UNIT TABLET PO SCH ×3 (08:18→17:17)
[2017-07-27] MEDS: LACTOBACILLUS RHAMNOSUS GG 1 EACH CAPSULE PO SCH ×2 (08:18→20:16)
[2017-07-27] MEDS: HYDROCORTISONE 0.5% CREAM 28.35 GM TUBE TOP SCH ×2 (08:19→21:39)
[2017-07-27] MEDS: Z GUARD REMEDY PASTE 57 GM TUBE TOP SCH ×2 (08:23→21:40)
[2017-07-27 11:13] VITALS: BP 104/45
--- NOTE | 2017-07-27 12:00 | NUR ---
tolerating tube fdg well, no nausea/vomiting, no residual noted
[2017-07-27 15:32] VITALS: BP 96/48
--- NOTE | 2017-07-27 18:20 | NUR ---
no distress noted, Nutren tube fdg tolerated well, all needs attended and met, repositioned q 2h with heels off loaded at all times, kept clean and dry at all times, still with redness of perineal and scrotal/penile areas- scrotum kept elevated on rolled towel, safety measures maintained
--- NOTE | 2017-07-27 19:15 | NUR ---
RECEIVED PATIENT IN BED, AWAKE, VERBALLY RESPONSIVE, NO SOB, NO CHEST PAIN, GTF TOLERATE WELL, NO NAUSEA NO VOMITING NOTED, REPORTED WITH LOOSE BOWEL MOVEMENT, WILL HOLD STOOL SOFTENER. CONT TO MONITOR.
[2017-07-27 19:48] VITALS: BP 100/55
[2017-07-27] MEDS: risperiDONE 0.5 MG TABLET PO SCH (20:16)
[2017-07-27] MEDS: SENNOSIDES 1 TABLET PO SCH (20:18)
[2017-07-27] MEDS: DOCUSATE SODIUM 250 MG CAPSULE PO SCH (20:18)
[2017-07-28 05:08] VITALS: BP 138/58
--- NOTE | 2017-07-28 05:41 | NUR ---
PATIENT AWAKE, VERBALLY RESPONSIVE, HOB ELEVATED, NO SOB NO CHEST PAIN, TOLERATE FEEDING WELL, NO NAUSEA NO VOMITING NOTED, TURN AND REPOSITION, KEPT CLEAN AND DRY, COMPLAIN OF MILD PAIN, MEDICATED FOR PAIN. NO RESIDUAL NOTED, CONT TO MONITOR. PATIENT HAS EPISODE OF NON PRODUCTIVE COUGH, KEPT HOB ELEVATED,
[2017-07-28] MEDS: CARBIDOPA/LEVODOPA 25-100MG TABLET PO SCH ×3 (06:10→13:27)
[2017-07-28] MEDS: PANTOPRAZOLE SODIUM 40 MG TABLET.DR PO SCH (06:10)
--- NOTE | 2017-07-28 07:30 | NUR ---
RESTING IN BED WITH EYES CLOSED NO SIGNS OF PAIN OR DISTRESS. TOLERATING FEEDING VIA GT AFEBRILE
[2017-07-28] MEDS: ASCORBIC ACID 500 MG TABLET PO SCH (08:21)
[2017-07-28] MEDS: SERTRALINE HCL 50 MG TABLET PO SCH (08:21)
[2017-07-28] MEDS: CHOLECALCIFEROL 1,000 UNIT TABLET PO SCH ×2 (08:21→13:27)
[2017-07-28] MEDS: LACTOBACILLUS RHAMNOSUS GG 1 EACH CAPSULE PO SCH (08:21)
[2017-07-28] MEDS: Z GUARD REMEDY PASTE 57 GM TUBE TOP SCH (08:22)
[2017-07-28] MEDS: HYDROCORTISONE 0.5% CREAM 28.35 GM TUBE TOP SCH (08:22)
[2017-07-28 11:13] LABS: BASOPHILS % (AUTO) 0.3 % (0.0-2.0); EOSINOPHILS # (AUTO) 0.5 K/uL (0.0-0.7); EOSINOPHILS % (AUTO) 3.4 % (0.0-7.0); HEMOGLOBIN 11.9 G/DL (14.0-18.0); LYMPHOCYTES % (AUTO) 6.7 % (20.5-51.5); MEAN CORPUSCULAR HEMOGLOBIN 29.4 UUG (27.0-31.0); MEAN CORPUSCULAR HGB CONC 33 g/dL (32.0-37.0); MEAN CORPUSCULAR VOLUME 89.2 FL (82.0-92.0); MONOCYTES # (AUTO) 0.9 K/UL (0.1-1.30); NEUTROPHILS # (AUTO) 12.4 K/UL (1.8-8.9); NEUTROPHILS % (AUTO) 83.6 % (38.5-71.5); PLATELET COUNT (AUTO) 214 K/UL (150-450); RED BLOOD CELL COUNT(AUTO) 4.03 MIL/UL (4.7-6.1); WHITE BLOOD COUNT (AUTO) 14.8 K/UL (4.0-11.2)
[2017-07-28 11:34] LABS: ALANINE AMINOTRANSFERASE 8 U/L (16-63); ALKALINE PHOSPHATASE 85 U/L (50-136); ASPARTATE AMINOTRANSFERASE 15 U/L (15-37); BILIRUBIN,TOTAL 0.3 mg/dL (0.2-1.0); CARBON DIOXIDE 30 mmol/L (21-32); CHLORIDE 103 mmol/L (98-107); CREATININE 0.7 mg/dL (0.6-1.3); GLUCOSE 103 mg/dL (74-106); MAGNESIUM 2.2 mg/dL (1.8-2.4); PHOSPHOROUS 3.6 mg/dL (2.5-4.9); POTASSIUM 4.4 mmol/L (3.5-5.1); TOTAL PROTEIN, SERUM 6.8 g/dL (6.4-8.2); UREA NITROGEN, BLOOD 23 mg/dL (7-18)
[2017-07-28 11:46] VITALS: BP 90/44
--- NOTE | 2017-07-28 13:00 | NUR ---
repot given to diya [facility]
--- NOTE | 2017-07-28 13:58 | NUR ---
discharged to [facility] via ambulance stable
== END 2017-07-28 14:03 | DRG 177 ==
LOC: MED 18:22 → TELE 07-17 00:02 → MED 07-17 11:15
PROVIDERS: ADMIT Internal Medicine; ATTEND Internal Medicine
PROC: 0DH63UZ Insertion of Feeding Device into Stomach, Percutaneous Approach (ICD-10-PCS; principal; 2017-07-21 08:54)
DX: J69.0 Pneumonitis due to inhalation of food and vomit (principal); E43 Unspecified severe protein-calorie malnutrition; G93.40 Encephalopathy, unspecified; R13.10 Dysphagia, unspecified; R64 Cachexia; D68.59 Other primary thrombophilia; N39.0 Urinary tract infection, site not specified; G20 Parkinson's disease; F02.81 Dementia in other diseases classified elsewhere, unspecified severity, with behavioral disturbance; G30.9 Alzheimer's disease, unspecified; F20.0 Paranoid schizophrenia; Z68.1 Body mass index [BMI] 19.9 or less, adult; J44.9 Chronic obstructive pulmonary disease, unspecified; D64.9 Anemia, unspecified; B96.20 Unspecified Escherichia coli [E. coli] as the cause of diseases classified elsewhere; I10 Essential (primary) hypertension; K21.9 Gastro-esophageal reflux disease without esophagitis; R62.7 Adult failure to thrive; R53.1 Weakness; M62.50 Muscle wasting and atrophy, not elsewhere classified, unspecified site; Z87.11 Personal history of peptic ulcer disease
CPT/HCPCS: 36415; 43235; 83550; 83735; 84100; 85025; 92610; 93005; A4217; A4663; J1200; J1650; J1956; J2185; J2270; J3490; J7030; J7042; J7060